=== PATIENT | female | born 1955 | race Caucasian/White ===

== ENCOUNTER → 2019-10-12 10:40 | Outpatient (BNVA) | payer BC, SELFPAY | PROVIDERS: Family Provider Internal Medicine; PCP Internal Medicine; Visit Provider Specialist | DX: G43.711 Chronic migraine without aura, intractable, with status migrainosus (principal) | CPT/HCPCS: 64615; J0585 ==

== ENCOUNTER 2019-10-19 14:36 | Outpatient (CLI) | payer BC, SELFPAY ==
--- NOTE | 2019-10-19 | XRR_ITS ---
PROCEDURE INFORMATION: Exam: XR Right Knee Exam date and time: 10/19/2019 3:04 PM Age: 64 years old Clinical indication: Pain; Knee; Right; Additional info: Pain in right knee, chronic getting worse last 3 months TECHNIQUE: Imaging protocol: XR Right knee. Views: 3 views. COMPARISON: No relevant prior studies available. FINDINGS: Bones/joints: There is joint space narrowing and osteophyte formation at the patellofemoral joint. There is osteophyte formation in the medial and lateral compartments. No acute fracture. Soft tissues: Normal. XR/XR knee RT 3V* [id number] IMPRESSION: There is right knee osteoarthritis.If there is desire for further evaluation, a MRI could be performed.
== END 2019-10-19 14:37 | disposition home or self-care (01) ==
LOC: RAD 14:40
PROVIDERS: PCP Internal Medicine; Visit Provider Internal Medicine
DX: M17.11 Unilateral primary osteoarthritis, right knee (principal)
CPT/HCPCS: 73562

== ENCOUNTER → 2019-11-20 10:58 | Outpatient (BNVA) | payer BC, SELFPAY | PROVIDERS: PCP Internal Medicine; Referring Provider Internal Medicine; Visit Provider Specialist | DX: M25.561 Pain in right knee (principal); M16.11 Unilateral primary osteoarthritis, right hip; M17.11 Unilateral primary osteoarthritis, right knee | CPT/HCPCS: 73560; 73565; 80053; 81000; 87081 ==

== ENCOUNTER 2019-11-28 11:26 | Observation (INO) | payer BC, SELFPAY ==
[2019-11-23 11:13] VITALS: BMI 32.0
--- NOTE | 2019-11-23 11:43 | ANES.PREANE2 ---
Pre-Anesthetic Assessment Pre-Anesthetic Assessment: Height/Weight: Height 1.78 m Weight 101.151 kg Preop Diagnosis: Severe DJD right knee Proposed Procedure: Operation Date: 11/28/19 07:00 Proposed Procedures p Total Knee Arthroplasty 74121 M17.11(Right) - Albertina Mcclure MD Social: Social History: No alcohol and No tobacco Exam: Pre-Anes Outpt Exam: alert, oriented x 3, clear to auscultation bilaterally and regular rate & rhythm Airway: Submandibular: WNL Cervical ROM: WNL MP: 3 Dentition: Other (teeth ok) History/ROS: No significant history except as noted Pulmonary: Pulmonary: Sleep apnea CV/HEM: CV/HEM: DVT and None reported Comments: Factor V liden def : : None reported Hepatic: Hepatic: None reported GI: GI: GERD (controlled) Metabolic: Metabolic: DM (diet) and Hyperlipidemia Musc/skel: Musc/skel: Lower Back Pain and OA/DJD Neuropsych: Neuropsych: Anxiety and Depression Anesthetic Plan: ASA status: 3 Anesthesia: Anesthesia Evaluation, Eval. for regional block, General and Regional (specify below) (right AC) Risk of > 500 ml blood loss (7ml/kg in children): No PFSH Anesthesia PFSH: Medical History Ch mgr wo neeraj w ntr w st Diabetes GERD (gastroesophageal reflux disease) History of high cholesterol Hx of deep venous thrombosis Sleep apnea Surgical History H/O eye surgery History of intraocular lens implant Hx of arthroscopic knee surgery Hx of section Hx of removal of cyst Hx of shoulder surgery Family History Other Diabetes Social History Smoking and tobacco status: never smoked Female Reproductive History: Date of last menstrual period: 11/12/09 Data Anesthesia CBC & Chem 7: 11/23/19 11:30 Cardiac Studies: No Data to Display
[2019-11-23 11:44] LABS: Basophils # 0.1 10^3/uL (0.0-0.1); Basophils % 0.9 %; Eosinophils # 0.1 10^3/uL (0.0-0.8); Eosinophils % 1.7 %; Hematocrit 43.3 % (37.0-47.0); Lymphocytes # 1.9 10^3/uL (0.8-4.8); Lymphocytes % 32.6 %; Mean Corpuscular HGB Conc 32.3 g/dL (30.0-36.0); Mean Corpuscular Hemoglobin 29.6 pg (28.0-34.0); Mean Corpuscular Volume 91.5 fL (81-99); Monocytes # 0.4 10^3/uL (0.2-0.9); Monocytes % 6.7 %; Neutrophils # 3.4 10^3/uL (1.8-7.7); Neutrophils % 57.9 %; Nucleated Red Blood Cells % 0 %; Platelet Count 219 10^3/cmm (130-400); Red Blood Count 4.73 10^6/uL (4.1-5.3); Red Cell Distribution Width 12.7 % (12.1-15.1); White Blood Count 5.8 10^3/uL (4.0-10.0)
[2019-11-23 11:59] LABS: Alanine Aminotransferase 20 U/L (0-33); Albumin Level 4.5 g/dL (3.5-5.2); Alkaline Phosphatase 76 IU/L (35-105); Anion Gap 18.2 (5-19); Aspartate Amino Transferase 24 U/L (0-32); Blood Urea Nitrogen 11 mg/dL (8-23); Calcium 9.4 mg/dL (8.5-10.5); Carbon Dioxide 25 mmol/L (22-29); Chloride 100 mmol/L (98-107); Globulin 3.1 g/dL (1.3-4.6); Glomerular Filtration Rate 84.8 mL/min (90-130); Glucose 154 mg/dL (65-115); Osmolality Calculated 287 mOsm/kg (285-295); Potassium 4.2 mmol/L (3.5-5.1); Sodium 139 mmol/L (136-145); Total Bilirubin 0.5 mg/dL (0.15-1.2); Total Protein 7.6 g/dL (6.6-8.7)
[2019-11-28] VITALS (21 sets, daily range): BP systolic 113–151; BP diastolic 66–89; PULSE 58–94; RESP 16–24; TEMP 35.5–37.3; O2SAT 91–98
--- NOTE | 2019-11-28 06:53 | P.HPUD_ITS ---
Surgery/Procedure H&P Update DATE OF PROCEDURE: November 28, 2019 DATE H&P PERFORMED: 11/20/19 H&P UPDATE INFORMATION: I have reviewed H&P completed within last 30 days, I have examined patient prior to procedure, No changes to prior documentation and H&[place] is [place] [facility] date indicated PREOP DIAGNOSIS: Severe DJD right knee PLANNED PROCEDURE: Operation Date: 11/28/19 08:05 Proposed Procedures p Total Knee Arthroplasty 61464 M17.11(Right) - Albertina Mcclure MD
[2019-11-28 06:59] LABS: Glucose Point of Care 132 mg/dL (70-110)
[2019-11-28] MEDS: midazolam 1 mg/mL INJ 2 mL 2 MG IVP (07:10)
[2019-11-28] MEDS: CELEcoxib 200 mg Capsule 400 MG PO (07:10)
--- NOTE | 2019-11-28 07:10 | P.ANESUD_ITS ---
Pre-Anesthetic Update Pre-Anesthetic Assessment: Date of Surgery/Procedure: 11/28/19 Preop Kelsea gnosis: Severe DJD right knee Proposed Procedure: Operation Date: 11/28/19 08:05 Proposed Procedures p Total Knee Arthroplasty 42588 M17.11(Right) - Albertina Mcclure MD Any changes to Pre-Anesthetic Assessment?: No Last Intake: Intake NPO > 8 hrs Last Liquid Date 11/27/19 Last Solid Date 11/27/19 Labs Last 48hrs: Laboratory Results - last 48 hr 11/28/19 06:55 POC Glucose 132 Vitals: Temperature 97.3 F L 11/28/19 06:40 Temperature Source Temporal Artery S can 11/28/19 06:40 Pulse Rate 60 11/28/19 06:40 Pulse Rhythm 11/28/19 06:40 Pulse Strength 3+ Normal 11/28/19 06:40 Respiratory Rate 18 11/28/19 06:40 Blood Pressure 135/76 11/28/19 06:40 Blood Pressure Dipika n 95 11/28/19 06:40 Pulse Oximetry 97 11/28/19 06:40 Oxygen Delivery Me thod 11/28/19 06:40 Exam: Pre-Anes Outpt Exam: alert, oriented x 3, clear to auscultation bilaterally and regular rate & rhythm Cardiac Studies: No Data to Display
--- NOTE | 2019-11-28 07:10 | ANES.PROC ---
Anesthesia Procedures Procedure/Date: 11/28/19 Nerve Block ^: Nerve Block 1: Main Anesthesia: general anesthesia Time Out Performed: Yes Consent: requested by attending/covering physician, from patient, risks and benefits reviewed and patient agrees to proceed Nerve block location: adductor canal (R) Anesthesia monitors applied: pulse oximetry, BP cuff and oxygen Anesthetic Used: ropivicaine 0.5% and with decadron (4 mg) Amount of anesthesia used (mL): 30 Ultrasound used to: recognize landmarks Nerve Stimulator Used?: No Interscalene/Femoral BLK: 4 stimuplex 21 g needle used for position and inplane approach, visualize local anesthetic spread and no vascular puncture identified Injection: neg aspiration of heme and paresthesia +/- Patient Tolerated Procedure: well and no complications Complications: none
[2019-11-28] MEDS: sodium chloride 0.9% 1,000 ML 30 ML IV (07:11)
[2019-11-28] MEDS: ceFAZolin 1,000 mg SDV 1000 MG IRRIGATION ×2 (08:55)
[2019-11-28] MEDS: tranexamic acid 1,000 mg/10mL SDV 1000 MG IRRIGATION (10:14)
[2019-11-28] MEDS: vancomycin 1,000 MG SDV 1000 MG XX (10:15)
[2019-11-28] MEDS: fentaNYL 50 mcg/mL INJ 2mL IVP ×2 (11:06→11:13)
--- NOTE | 2019-11-28 11:08 | XRR_ITS ---
PROCEDURE INFORMATION: Exam: XR Right Knee Exam date and time: 11/28/2019 11:23 AM Age: 64 years old Clinical indication: Condition or disease; Joint replacement status; Knee; Right; Prior surgery; Additional info: S/P right tka TECHNIQUE: Imaging protocol: XR Right knee. Views: Frontal and cross table lateral views of the right knee. COMPARISON: CR (LOW EXM, ) 11/20/2019 11:03 AM FINDINGS: Bones/joints: The patient is status post total knee replacement. The patella and patellar component are obliquely imaged on the lateral projection, but appear normally position in the frontal projection. There is a 3.2 mm lucency above the femoral component on the lateral image only, etiology indeterminate. The tibial prosthetic joint component appears to be in good position and alignment. There is no fracture identified. Interval screw tracts in the proximal tibia noted on the frontal image. There is no joint effusion identified. Soft tissues: Operative site emphysema is present. Anterior surgical cutaneous clips. XR/XR knee RT 1-2V [id number] IMPRESSION: Status post total knee replacement. Please see above comments.
--- NOTE | 2019-11-28 11:14 | PM.OP ---
Operative Report Date of procedure: November 28, 2019 Pre-op Diagnosis: Severe DJD right knee Post-op diagnosis: same Associated Problem List Diagnoses (1) Primary osteoarthritis of right knee:
--- NOTE | 2019-11-28 11:25 | PM.OP ---
Operative Report Date of procedure: November 28, 2019 Pre-op Diagnosis: Severe DJD right knee with Flexion contracture Post-op diagnosis: same Post-op Findings: Flexion contracture Procedure Done: Right total knee arthroplasty utilizing the following components: The [employer] triathlon total knee system with a size 3 right posterior stabilized press-fit femoral component, a size 3 press-fit tibial component and a size 3 x 13 posterior stabilized tibial insert with an asymmetric 29 x 9 mm patella Specimens removed/disposition: Bone, disposed of Pathology: none sent Surgeon: Albertina Mcclure Button Clamper: [facility] OR technicians Anesthesia: General (Intubated ASA 3 with preoperative regional block) Estimated blood loss (mL): 25 Tourniquet time (min): 120 IV fluids (mL): 1,500 Urine output (mL): 200 Complications: None Findings: Flexion contracture with valgus deformity partially corrected Condition: stable Disposition: PACU (Then to floor for postoperative rehabilitation and pain management) Brief History: This 64-year-old woman presented with complaints of severe right knee pain. She is having significant impact in her activities of daily living from her right knee. She wishes to proceed with total knee arthroplasty. Risks and complications are explained to her. Consents are signed. Questions are answered. Procedure: The patient was brought to the operating theater, and after undergoing adequate general intubated anesthesia with supplemental regional block, the right lower extremity was prepped with Dura-Prep and draped in usual fashion following placement of a tourniquet high on the leg. The leg was then draped free. Following prepping and draping, the leg was exsanguinated, and the tourniquet was elevated to 250 mmHg for a total tourniquet time of 120 minutes. Prior to elevation of the tourniquet, but following exposure of the site of surgery, a surgical pause was performed. At the time of the surgical pause, we confirmed the site and side of surgery. Additionally, we confirmed the appropriate and timely administration of preoperative antibiotics, Ancef 2 g and transexemic acid 1 g. The availability of equipment was confirmed, and the patient's identity was verbalized as well. Following the surgical pause, an incision was made centering over the patella continuing proximally and distally as necessary to allow access to the knee joint. Dissection continued through skin and soft tissues using a scalpel. Hemostasis was obtained using electrocautery. The skin incision was followed by a median parapatellar arthrotomy. The leg was extended and the patella was everted. Following this, the leg was returned to flexed position. The distal femur was exposed and a drill hole was made in this for placement of the distal femoral jig. The distal femoral jig was set at 5? of valgus. The distal femoral cutting block was then placed in appropriate position, and an terrell wing was used to confirm an appropriate amount of distal femur would be resected. The distal femoral resection was accomplished with 10 mm of bone being resected distally second to the flexion contracture. After the distal femoral resection had been accomplished, the femur was measured and it measured a size 3. Medial lateral dimension also measured a size 3. A size 3 femoral cutting block was placed in position, and we were then able to accomplish the anterior, posterior and chamfer cuts. This jig was then removed and the notch guide was placed in position. With the notch guide in appropriate position, the notch was excised including resection of the anterior and posterior cruciate ligaments. This notch was to allow for the posterior stabilized femoral component. At this point, the femur was prepared and attention was directed to the proximal tibia. The posterior knee retractor was placed along with medial and lateral retractors. Further resection of the menisci was accomplished as we had better visualization. A complete meniscectomy was performed both medially and laterally with care being taken to protect the popliteus. Retractors were then placed so that the proximal tibia was well visualized. A drill hole was then made in the tibia for placement of the intramedullary guide. This guide was placed so that approximately 2 mm of bone would be resected from the deficient medial tibial plateau. The intramedullary guide was utilized supplemented with an extramedullary guide to assure appropriate alignment for the proximal tibial resection. The proximal tibial jig was then evaluated, pinned in position, and the proximal tibial resection was accomplished without difficulty. The jig was removed and the proximal tibia was measured. It measured a size 3. A trial reduction was accomplished with a 9 mm insert. Posterior release was required both before and after trial reduction. Large osteophytes were also removed from posterior femur. A medial release was required as well. We increased through a size 11 mm insert to a final size 13 mm insert. We then had good balance to the knee with full extension and excellent varus valgus stability. The femoral component was placed in position for the trial reduction, and the knee was placed through range of motion. There was excellent stability with excellent varus-valgus alignment with appropriate patellar tracking. This was felt to be the appropriate size insert. There was full extension and flexion without lift off and the rotation of the tibia was marked. Alignment was checked from the hip to the ankle, and this was noted to be appropriate as well. Attention was then directed to the patella. The patella was measured with a caliper. We resected sufficient patella to leave approximately 14 mm of patella remaining. Measurements of the patella then indicated that a size asymmetric 29 mm x 9 mm was the appropriate patellar size. We then placed the jig to drill for the 3 pegs of the press-fit patella, and these drill holes were made without incident. A trial patella was then placed and the knee was placed through range of motion. The patella was noted to track nicely without evidence of subluxation. The femur was prepared for a press-fit femur by drilling 2 holes for the femoral pegs. All trial components were subsequently removed. The tibial tray was then pinned into position, and we broached the tibia for the stem of the tibial component. Subsequently, 4 drill holes were made for placement of the press-fit tibia. This was accomplished without difficulty. Care was taken to assure appropriate rotation of the tibia as well as appropriate position on the proximal tibia. The tibial tray was completely seated on the proximal tibia. Following broaching, the tibial guide was removed, and all surfaces were copiously irrigated. The surfaces were then dried and a bone plug was placed into the distal femur. Exparel was also injected at this point. The Tritanium tibia was impacted into position. The beaded femur was then impacted into position in a cementless fashion. The tibial insert was placed. The patella was pressed into position with a patellar clamp. The knee was irrigated with 20 mL of Betadine and 500 mL of normal saline, and this was allowed to remain in the knee for 3-4 minutes. Additionally, the knee was irrigated with transexemic acid and 100 mL of fluid. This was allowed to remain in the knee for 3 full minutes. The knee was then copiously irrigated and suctioned dry. Attention was then directed to closure. Closure was accomplished with 0 Vicryl in the fascial tissues, 2-0 Monocryl was used in the subcutaneous tissues, and the skin was closed with skin jerrod followed by Exofin. A sterile dressing was then placed consisting of Telfa, 4 x 4's, ABDs, sterile soft roll, and an Mark wrap. The patient was returned the Recovery Room in a satisfactory condition. X-rays were obtained there. The patient will be discharged to the floor for postoperative rehabilitation and pain management. She'll be under observation status with plans to discharge home with home health.
--- NOTE | 2019-11-28 11:27 | SUR.PHASEI ---
pt awake alert oriented x 3 pt c/o of pain to rt knee cap area, pt had a block prior to surgery
[2019-11-28 11:50] LABS: Glucose Point of Care 165 mg/dL (70-110)
--- NOTE | 2019-11-28 11:53 | SUR.PHASEI ---
1145 PT TO FLOOR PT ALERT HANDOFF AT BEDSIDE TO EDSON BARRAGAN., DRESSING D/.I [place] PATENT OF LT YELLOW URINE IN BAG AND TUBING, APPROX 150ML NOT EMPTIEDS. BP 143/81, HR 59, RESP 18, SATS ON RA 94%
[2019-11-28] MEDS: oxyCODONE 5 mg IR Tab/Cap PO ×3 (12:52→20:39)
[2019-11-28] MEDS: lactated ringers 1,000 ML 100 ML IV (12:57)
[2019-11-28] MEDS: chlorhexidine gluconate 0.12% Btl 473 mL 30 ML MUCOUS MEM ×3 (13:05→20:42)
[2019-11-28] MEDS: iron polysaccharide complex 150 mg Capsule PO (17:14)
[2019-11-28] MEDS: sennosides-docusate Tablet 2 TAB PO (17:15)
[2019-11-28] MEDS: calcium carbonate 500 mg Chew Tablet 1000 MG PO (17:15)
[2019-11-28] MEDS: atorvastatin 40 mg Tablet 20 MG PO (20:40)
[2019-11-28] MEDS: CELEcoxib 200 mg Capsule PO (20:40)
[2019-11-28] MEDS: baclofen 10 mg Tablet PO (20:40)
[2019-11-29] VITALS (7 sets, daily range): BP systolic 113–123; BP diastolic 59–75; PULSE 50–57; RESP 12–20; TEMP 36.6–37; O2SAT 95–99
[2019-11-29] MEDS: oxyCODONE 5 mg IR Tab/Cap PO ×2 (03:45→08:42)
[2019-11-29] MEDS: FUROsemide 20 mg Tablet PO (05:12)
[2019-11-29] MEDS: lactated ringers 1,000 ML 100 ML IV (05:15)
[2019-11-29 05:52] LABS: Basophils % 0.2 %; Eosinophils % 0.1 %; Hematocrit 35.7 % (37.0-47.0); Hemoglobin 11.5 g/dL (11.5-15.3); Lymphocytes % 23.6 %; Mean Corpuscular HGB Conc 32.2 g/dL (30.0-36.0); Mean Corpuscular Hemoglobin 30.2 pg (28.0-34.0); Mean Corpuscular Volume 93.7 fL (81-99); Mean Platelet Volume 11.2 fL (7.4-10.4); Monocytes # 0.7 10^3/uL (0.2-0.9); Monocytes % 8.5 %; Neutrophils # 5.6 10^3/uL (1.8-7.7); Neutrophils % 67.1 %; Nucleated Red Blood Cells % 0 %; Platelet Count 172 10^3/cmm (130-400); Red Blood Count 3.81 10^6/uL (4.1-5.3); Red Cell Distribution Width 13.1 % (12.1-15.1); White Blood Count 8.3 10^3/uL (4.0-10.0)
[2019-11-29 06:07] LABS: Anion Gap 15.7 (5-19); Blood Urea Nitrogen 9 mg/dL (8-23); Carbon Dioxide 23 mmol/L (22-29); Chloride 106 mmol/L (98-107); Glomerular Filtration Rate 84.8 mL/min (90-130); Glucose 171 mg/dL (65-115); Osmolality Calculated 292 mOsm/kg (285-295); Potassium 3.7 mmol/L (3.5-5.1); Sodium 141 mmol/L (136-145)
--- NOTE | 2019-11-29 07:07 | PC.NURSE ---
Shift Summary Patient rested well throughout the night with requesting pain medication twice. Mtz was removed at 0600 with 1000 output. Patient is up to chair for breakfast.
[2019-11-29] MEDS: calcium carbonate 500 mg Chew Tablet 1000 MG PO (08:36)
[2019-11-29] MEDS: prednisoLONE 1% Op Susp 5 mL Btl 1 DROP EYE-LEFT (08:36)
[2019-11-29] MEDS: multivitamin therapeutic Tablet 1 TAB PO (08:37)
[2019-11-29] MEDS: rivaroxaban 10 mg Tablet 20 MG PO (08:37)
[2019-11-29] MEDS: sennosides-docusate Tablet 2 TAB PO (08:37)
[2019-11-29] MEDS: cetirizine 10 mg Tablet PO (08:37)
[2019-11-29] MEDS: pantoprazole DR 40 mg Tablet PO (08:37)
[2019-11-29] MEDS: aspirin 325 mg EC Tablet PO (08:37)
[2019-11-29] MEDS: escitalopram 10 mg Tablet 20 MG PO (08:37)
[2019-11-29] MEDS: iron polysaccharide complex 150 mg Capsule PO (08:37)
[2019-11-29] MEDS: gabapentin 300 mg Capsule PO (08:37)
[2019-11-29] MEDS: CELEcoxib 200 mg Capsule PO (08:37)
[2019-11-29] MEDS: chlorhexidine gluconate 0.12% Btl 473 mL 30 ML MUCOUS MEM (08:38)
[2019-11-29] MEDS: cholecalciferol (vitamin D3) 1,000 unit Tablet 1000 UNIT PO (08:38)
--- NOTE | 2019-11-29 10:34 | P.DS_ITS ---
Discharge Providers Date of Admission: 11/28/19 11:26 Date of Discharge: November 29, 2019 Attending Provider at Admission: Albertina Mcclure MD Attending Provider at Discharge: Albertina Mcclure MD Primary Care Provider: Marlen Judd MD Diagnoses at Discharge Discharge Diagnosis (1) History of total right knee replacement: Status: Acute (2) Primary osteoarthritis of right knee: Status: Resolved Reason for Visit Reason for Visit: Primary osteoarthritis right knee Hospital Course Hospital Course: Patient was admitted on November 28, 2019 for same-day surgery for a right total knee arthroplasty. The procedure performed is as follows: Right total knee arthroplasty utilizing the following components: The [employer] triathlon total knee system with a size 3 right posterior stabilized press-fit femoral component, a size 3 press-fit tibial component and a size 3 x 13 posterior stabilized tibial insert with an asymmetric 29 x 9 mm patella. Postoperatively, the patient was admitted to the floor for pain management, medical supervision, and to begin physical therapy process. Patient was seen on the first postoperative day. She was doing well working with physical therapy. She felt independent. Dressings were removed. There were no complications. Discharge Summary: Patient will be discharged home with home health. Physical Exam Const: COMMON NORMALS: no acute distress, average body habitus, patient oriented x3 and alert GENERAL APPEARANCE: cooperative and comfortable ORIENTATION/CONSCIOUSNESS: Yes awake HENMT: COMMON NORMALS: normocephalic and atraumatic HEAD & SCALP: normocephalic and atraumatic Eye: GENERAL EYE: appearance normal, both eyes and all related structures Chest: COMMONS NORMALS: normal inspection of the chest Resp: COMMON NORMALS: normal respiratory effort EFFORT & INSPECTION: Yes able to speak in complete sentences and Yes symmetric chest movement Extremity: GENERAL: Yes normal exam except as noted RIGHT LOWER EXTREMITY: Yes knee joint (Status post total knee arthroplasty) Right knee: Yes inspection (Dressing is removed. Palma are intact. The wound is benign. There is minimal to no swelling.), Yes palpation (Patient does describe some numbness to palpation about the incision area. Minimal tenderness to palpation.), Yes ROM (Near full extension. Flexion not evaluated, but she will work on this with physical therapy.), Yes neurovascular exam (Intact with no evidence of DVT) and Yes other (There is minimal to no swelling distally in the leg) Neuro: COMMON NORMALS: patient oriented x3 SENSORIUM/ORIENTATION: Yes alert Psych: COMMON NORMALS: mental status grossly normal APPEARANCE: Yes grossly normal ATTITUDE: Yes calm and Yes engaged ATTENTION/CONCENTRATION: Yes attention grossly intact Skin: COMMON NORMALS: no rashes or lesions noted GENERAL SKIN EXAM: no rashes or lesions noted Urinary Catheter Management^: Mtz: Cath Placed During This Visit: yes, but has since been removed by the nurse Reason for Continuing Indwelling Catheter: Decision to DC Catheter Urinary Catheter Date of Insertion: 11/28/19 Urinary Catheter Time of Insertion: 08:10 Date Urinary Catheter Removed: 11/29/19 Time Urinary Catheter Discontinued: 06:00 Discharge Data Data Completed and Pending: Completed Studies During Hospitalization Category Date Time Status XR knee RT 1-2V 7 3560 Urgent Exams 11/28/19 11:08 Completed Pending at discharge Category Date Time Status Complete Blood Co unt w/Auto Lab 11/30/19 04:00 Uncollected Complete Blood Co unt w/Auto Lab 12/01/19 04:00 Uncollected Complete Blood Co unt w/Auto Routine Lab 11/23/19 10:58 Uncollected Labs from last 24 hours 11/29/19 11/29/19 11/28/19 05:29 05:29 11:45 WBC 8.3 RBC 3.81 L Hgb 11.5 Hct 35.7 L MCV 93.7 MCH 30.2 MCHC 32.2 RDW 13.1 Plt Count 172 MPV 11.2 H Neut % (Auto) 67.1 Lymph % (Auto) 23.6 [place] % (Auto) 8.5 Eos % (Auto) 0.1 Baso % (Auto) 0.2 Neut # (Auto) 5.6 Lymph # (Auto) 2.0 [place] # (Auto) 0.7 Eos # (Auto) 0.0 Baso # (Auto) 0.0 Nucleated RBC % (a uto) 0 Nucleated RBCs # 0.0 Sodium 141 Potassium 3.7 Chloride 106 Carbon Dioxide 23 Anion Gap 15.7 BUN 9 Creatinine 0.7 GFR Calculation 84.8 L Glucose 171 H POC Glucose 165 Calculated Osmolal ity 292 Calcium 9.0 Procedures Performed: Right total knee arthroplasty utilizing the following components: The [employer] tri[employer]al[employer] total knee system with a size 3 right posterior stabilized press-fit femoral component, a size 3 press-fit tibial component and a size 3 x 13 posterior stabilized tibial insert with an asymmetric 29 x 9 mm patella Vitals: Last Vital Signs Temp 97.8 F 11/29/19 08:00 Pulse 50 L 11/29/19 08:00 Resp 18 11/29/19 08:42 BP 120/75 11/29/19 08:00 Pulse Ox 99 11/29/19 08:00 Discharge Plan Discharge Patient Disposition: Home Health Service Condition: Stable Prescriptions: New celecoxib [Celebrex] 200 mg capsule 200 mg PO DAILY Qty: 30 RF: 0 oxycodone 5 mg tablet 5 mg PO Q4H PRN (Reason: pain) Qty: 30 RF: 0 Continued prednisolone acetate 1 % drops,suspension 1 drop ophthalmic (eye) DAILY RF: 0 gabapentin 300 mg capsule 300 mg PO DAILY RF: 0 cetirizine 10 mg tablet 10 mg PO DAILY RF: 0 furosemide 20 mg tablet 20 mg PO QAM RF: 0 escitalopram oxalate 20 mg tablet 20 mg PO DAILY RF: 0 pantoprazole 40 mg tablet,delayed release (DR/EC) 40 mg PO DAILY RF: 0 baclofen 10 mg tablet 10 mg PO BEDTIME RF: 0 lovastatin 20 mg tablet 20 mg PO BEDTIME RF: 0 rizatriptan 5 mg Tablet,Disintegrating 5 mg PO Q2H PRN (Reason: Headache) RF: 0 Xarelto 20 mg tablet 20 mg PO DAILY RF: 0 multivitamin with iron Tablet 1 tab PO DAILY RF: 0 Discharge Orders: Discharge Order (Routine); Ordered 11/28/19 Ordered By: Albertina Mcclure Other Ambulatory Orders: DME: Walker (Order) Location: None Selected Ordered By: Albertina Mcclure Referrals: [facility] [place] [facility] [place] [facility] [place]) [Outside] Marlen Judd MD [Primary Care Provider] - 12/27/19 12:45 pm Albertina Mcclure MD [Physician] - 12/13/19 11:45 am Discharge Diet: Advance as tolerated and Usual diet Discharge Activity: Increase activity as tolerated, Use walker/crutches as instructed and As per PT/OT instructions Activity Restrictions/Additional Instructions: Weightbearing as tolerated with home health and home physical therapy. Discharge Attestations Time Spent in Discharge Care*: greater than 30 min Specific Discharge Activities: Specific discharge activities: educating patient and documenting/other paperwork Status at Discharge: Cognitive status at discharge: cognitively intact , Behavioral status at discharge: cooperative , Overall status at discharge: patient has a new baseline Quality Metrics Clinical Quality Measures During this hospital stay, did patient experience: None Coding Level of Care Code [facility] Director for [facility] Exam Comprehensive Diagnoses History of total right knee replacement Z96.651 Primary osteoarthritis of right knee M17.11
[2019-11-29 10:59] LABS: Glucose Point of Care 156 mg/dL (70-110)
== END 2019-11-29 14:21 | disposition home health service (06) ==
LOC: MEDSURG 11:26
PROVIDERS: Admitting Provider Specialist; PCP Internal Medicine; Visit Provider Specialist
PROC: (CPT 27447; principal; 2019-11-28 08:05)
DX: M17.11 Unilateral primary osteoarthritis, right knee (principal); G47.30 Sleep apnea, unspecified; Z86.718 Personal history of other venous thrombosis and embolism; K21.9 Gastro-esophageal reflux disease without esophagitis; E11.9 Type 2 diabetes mellitus without complications; E78.5 Hyperlipidemia, unspecified; F41.9 Anxiety disorder, unspecified; F32.9 Major depressive disorder, single episode, unspecified
CPT/HCPCS: 27447; 12345; 36415; 36416; 51702; 73560; 80048; 80053; 82962; 85025; 96361; 96365; 96366; 96374; 97110; 97116; 97161; 97166; 97530; C1776; C9290; G0378; J0131; J0690; J1100; J2001; J2250; J2704; J2795; J3010; J3370; J3490; J7030

== ENCOUNTER 2019-12-13 11:09 | Outpatient (CLI) | payer BC, SELFPAY ==
--- NOTE | 2019-12-13 11:31 | XRR_ITS ---
PROCEDURE INFORMATION: Exam: XR Right Knee Exam date and time: 12/13/2019 11:50 AM Age: 64 years old Clinical indication: Condition or disease; Other: Post op fwup RT tka; Prior surgery; Surgery date: <1 month; Patient HX: Post op follow up right tka. Previous XR 11/28/19, 11/20/19,10/19/19; Additional info: Ptop fwup from RT tka TECHNIQUE: Imaging protocol: XR Right knee. Views: 3 views. COMPARISON: CR XR knee RT 1-2V 44096 11/28/2019 11:05 AM FINDINGS: Bones/joints: Patient is status post knee arthroplasty with near anatomical alignment of the prosthesis. No paralleling lucencies about the femoral or tibial component to suggest loosening. No acute fracture or dislocation Soft tissues: Surgical clips in the soft tissues. Other findings: Spacer. XR/XR knee RT 3V* [id number] IMPRESSION: 1. Status post total knee arthroplasty. 2 No acute fracture or dislocation status post knee arthroplasty.
== END 2019-12-13 11:10 | disposition home or self-care (01) ==
LOC: RAD 11:12
PROVIDERS: PCP Internal Medicine; Visit Provider Specialist
DX: Z96.651 Presence of right artificial knee joint (principal)
CPT/HCPCS: 73562

== ENCOUNTER 2019-12-18 12:54 | Outpatient (CLI) | payer BC, SELFPAY ==
--- NOTE | 2019-12-18 13:01 | MM_ITS ---
WS: [id number] BILATERAL SCREENING DIGITAL MAMMOGRAM WITH CAD HISTORY: SCREENING COMPARISON: 08/26/2018, 08/09/2017 Bilateral CC and MLO views submitted. Computer aided detection analyzed. Breast composition: There are scattered areas of fibroglandular density. No suspicious masses, microc alcifications or architectural distortion. Benign calcifications in each breast. MM/[id number] IMPRESSION: BI-RADS: 2-Benign FOLLOW UP: 1 Year Follow-up
== END 2019-12-18 12:55 | disposition home or self-care (01) ==
LOC: RADSHAW 12:59
PROVIDERS: PCP Internal Medicine; Visit Provider Internal Medicine
DX: Z12.31 Encounter for screening mammogram for malignant neoplasm of breast (principal)
CPT/HCPCS: 77067

== ENCOUNTER 2020-01-11 07:30 | Outpatient (RCR) | payer BC, SELFPAY | END 2020-01-29 23:59 | disposition home or self-care (01) | LOC: SPT 07:30 | PROVIDERS: PCP Internal Medicine; Visit Provider Specialist | DX: Z47.1 Aftercare following joint replacement surgery (principal); Z96.651 Presence of right artificial knee joint | CPT/HCPCS: 64615; 97110; 97161; J0585 ==

== ENCOUNTER 2020-01-30 06:00 | Outpatient (RCR) | payer BC, SELFPAY | END 2020-02-28 23:59 | disposition home or self-care (01) | LOC: SPT 06:00 | PROVIDERS: PCP Internal Medicine; Visit Provider Specialist | DX: Z47.1 Aftercare following joint replacement surgery (principal); Z96.651 Presence of right artificial knee joint | CPT/HCPCS: 97110 ==

== ENCOUNTER 2020-02-22 15:13 | Emergency (ER) | payer BC, SELFPAY ==
[2020-02-22 15:14] VITALS: BP 98/64; PULSE 52; RESP 18; TEMP 37.1; O2SAT 99; BMI 31.5
--- NOTE | 2020-02-22 15:21 | W.ED.UPPEXIN ---
HPI - Extremity Injury (Upper) General: Chief Complaint: Extremity Injury, Upper Stated Complaint: LEFT PINKY PAIN Time Seen by Provider: 02/22/20 15:17 Source: patient Mode of arrival: ambulatory Limitations: no limitations History of Present Illness: HPI narrative: Patient is a 64-year-old female who presents to ED today for evaluation of a crush injury to her left fifth digit that she sustained after she accidentally slammed in a car door. complaint: injury to: left and finger Onset (ago): minute(s) Other Extremity Injury: Left: fingers Other injuries: none Place: other (cardoor) Severity: moderate Relieving factors: none Exacerbating factors: other (palpation) Context: crush Associated symptoms: Reports no associated symptoms Review of Systems Musc: Reports: extremity pain (L 5th finger) [facility] ED PFSH: Medical History (Updated 02/22/20 @ 16:08 by STU Ernandez) Ch mgr wo neeraj w ntr w st Diabetes GERD (gastroesophageal reflux disease) History of high cholesterol Hx of deep venous thrombosis Sleep apnea Surgical History H/O eye surgery History of intraocular lens implant Hx of arthroscopic knee surgery Hx of section Hx of removal of cyst Hx of shoulder surgery Family History Other Diabetes Social History Smoking and tobacco status: never smoked Female Reproductive History: Date of last menstrual period: 11/12/09 Physical Exam Extremity: GENERAL: Yes normal exam except as noted OTHER: TTP, swelling and ecchymosis to palmar pad of L 5th digit; no nail damage noted Neuro: COMMON NORMALS: moves all extremities, no focal motor deficits and no sensory deficits noted Skin: OTHER: see extremity assessment Course Vital Signs: Vital signs: Vital Signs Temperature 98.7 F 02/22/20 15:14 Pulse Rate 52 L 02/22/20 15:14 Respiratory Rate 18 02/22/20 15:14 Blood Pressure 98/64 02/22/20 15:14 Pulse Oximetry 99 02/22/20 15:14 MDM - Extremity Injury (Upper) Imaging Data^: XR L finger: Radiologist's impression: [place] [address] [address] XRay Report Signed with Jossie Patient: Lillie Smith Unit #: [id number] : 1955 Age/Sex: 64 / F ADM Date: 02/22/20 Loc: ER Room/Bed: Attending Dr: Ordering Provider/Ordering MD: Chloe Reid Date of Service: 02/22/20 Procedure(s): XR finger LT min 2V 80930 Accession Number(s): [id number] Report Number: [id number] ADDENDUM WS: [id number] An additional oblique view has been submitted. No fractures or dislocations are seen. Addendum Dictated By: Gerri Rios MD Addendum Signed By: Gerri Rios MD Signed Date/Time: 02/22/20 1601 Addendum Cosigned By: WS: [id number] 2 views of the left fifth finger, 02/22/2020 Clinical Data: trauma; 5th Comparison: None. Findings: No fractures or dislocations are seen. The soft tissues are normal. The epiphyses and joint spaces are not remarkable. There is a calcification adjacent to the distal radial side of the fifth distal phalanx. This may be from an old injury. XR/XR finger LT min 2V 23963 Impression: Negative for new fracture of the left fifth finger. Dictated By: Gerri Rios MD Signed By: Gerri Rios MD Signed Date/Time: 02/22/20 1545 DD/ 1544 Discharge Plan Discharge Patient Disposition: Home Clinical Impression: Contusion of left little finger Qualifiers: Encounter type: initial encounter Damage to nail status: without damage Qualified Code(s): S60.052A - Contusion of left little finger without damage to nail, initial encounter Condition: Stable Prescriptions: No Action prednisolone acetate 1 % drops,suspension 1 drop ophthalmic (eye) DAILY RF: 0 gabapentin 300 mg capsule 300 mg PO DAILY RF: 0 cetirizine 10 mg tablet 10 mg PO DAILY RF: 0 furosemide 20 mg tablet 20 mg PO QAM RF: 0 escitalopram oxalate 20 mg tablet 20 mg PO DAILY RF: 0 pantoprazole 40 mg tablet,delayed release (DR/EC) 40 mg PO DAILY RF: 0 lovastatin 20 mg tablet 20 mg PO BEDTIME RF: 0 Celebrex 200 mg capsule 200 mg PO DAILY Qty: 30 RF: 0 rizatriptan 5 mg Tablet,Disintegrating 5 mg PO Q2H PRN (Reason: Headache) RF: 0 Xarelto 20 mg tablet 20 mg PO DAILY RF: 0 multivitamin with iron Tablet 1 tab PO DAILY RF: 0 Tylenol 325 mg Tablet 325 - 650 mg PO QID PRN (Reason: Pain) RF: 0 Discharge Orders: Discharge Order (Routine); Ordered 02/22/20 Ordered By: Chloe Reid Referrals: Marlen Judd MD [Primary Care Provider] - Patient Instructions: Crush Injury, Contusion in Adults (ED) Coding Level of Care Code ED Elevator Operator for Chg Fwd Exam Expanded Problem Focused
--- NOTE | 2020-02-22 15:23 | XR_ITS ---
WS: [id number] 2 views of the left fifth finger, 02/22/2020 Clinical Data: trauma; 5th Comparison: None. Findings: No fractures or dislocations are seen. The soft tissues are normal. The epiphyses and joint spaces ar e not remarkable. There is a calcification adjacent to the distal radial side of the fifth distal phalanx. This may be from an old injury. XR/XR finger LT min 2V 11098 Impression: Negative for new fracture of the left fifth finger.
[2020-02-22 16:20] VITALS: BP 133/82; PULSE 57; RESP 16; O2SAT 97
== END 2020-02-22 16:20 | disposition home or self-care (01) ==
PROVIDERS: Emergency Provider Physician Assistant; PCP Internal Medicine
DX: S60.052A Contusion of left little finger without damage to nail, initial encounter (principal); E11.9 Type 2 diabetes mellitus without complications; W23.0XXA Caught, crushed, jammed, or pinched between moving objects, initial encounter
CPT/HCPCS: 12345; 73140; 99281; 99282

== ENCOUNTER 2020-02-29 06:00 | Outpatient (RCR) | payer BC, SELFPAY | END 2020-03-08 23:00 | disposition home or self-care (01) | LOC: SPT 06:00 | PROVIDERS: PCP Internal Medicine; Visit Provider Specialist | DX: Z47.1 Aftercare following joint replacement surgery (principal); Z96.651 Presence of right artificial knee joint | CPT/HCPCS: 97110 ==

== ENCOUNTER → 2020-04-08 10:42 | Outpatient (BNVA) | payer BC, SELFPAY | PROVIDERS: PCP Internal Medicine; Visit Provider Specialist | DX: Z96.651 Presence of right artificial knee joint (principal) | CPT/HCPCS: 73560; 73565 ==

== ENCOUNTER → 2020-04-11 14:19 | Outpatient (BNVA) | payer BC, SELFPAY | PROVIDERS: Family Provider Specialist; PCP Internal Medicine; Visit Provider Specialist | DX: G43.711 Chronic migraine without aura, intractable, with status migrainosus (principal) | CPT/HCPCS: 64615; J0585 ==

== ENCOUNTER 2020-04-15 06:00 | Outpatient (RCR) | payer BC, SELFPAY | END 2020-05-16 23:00 | disposition home or self-care (01) | LOC: SPT 06:00 | PROVIDERS: PCP Internal Medicine; Referring Provider Specialist; Visit Provider Specialist | DX: Z47.1 Aftercare following joint replacement surgery (principal); Z96.651 Presence of right artificial knee joint | CPT/HCPCS: 97110; 97161 ==

== ENCOUNTER 2020-04-30 06:00 | Outpatient (RCR) | payer BC, SELFPAY | END 2020-05-30 23:59 | disposition home or self-care (01) | LOC: SPT 06:00 | PROVIDERS: PCP Internal Medicine; Referring Provider Specialist; Visit Provider Specialist | DX: Z47.1 Aftercare following joint replacement surgery (principal); Z96.651 Presence of right artificial knee joint | CPT/HCPCS: 97110 ==

== ENCOUNTER → 2020-05-06 13:34 | Outpatient (BNVA) | payer BC, SELFPAY | PROVIDERS: PCP Internal Medicine; Visit Provider Specialist | DX: G31.84 Mild cognitive impairment of uncertain or unknown etiology (principal) | CPT/HCPCS: 96116; 99214 ==

== ENCOUNTER 2020-05-06 16:18 | Outpatient (CLI) | payer BC, SELFPAY ==
[2020-05-06 17:46] LABS: Thyroid Stimulating Hormone 0.73 uIU/mL (0.27-4.20); Vitamin B12 476 pg/mL (232-1245)
== END 2020-05-06 16:19 | disposition home or self-care (01) ==
PROVIDERS: PCP Internal Medicine; Visit Provider Specialist
DX: R41.3 Other amnesia (principal)
CPT/HCPCS: 36415; 82607; 84443

== ENCOUNTER 2020-05-16 07:19 | Outpatient (CLI) | payer BC, SELFPAY ==
--- NOTE | 2020-05-16 07:15 | MR_ITS ---
WS: [id number] MRI BRAIN WITHOUT CONTRAST HISTORY: R41.3 - Other amnesia COMPARISON: CT head 08/20/2011 TECHNIQUE: Diffusion imaging, multiplanar T1, T2 and FLAIR imaging obtained. Diffusion-weighted images are negative. On the FLAIR sequence there is increased T2 signal and subara chnoid spaces of the RIGHT cerebellum, RIGHT temporal and parietal lobes. No susceptibility abnormali ty. Additional very mild chronic microvascular ischemic changes in the white matter. No midline shift or mass effect. Ventricles and extra-axial spaces are normal. No inferior displacement of cerebellar tonsils. The sella turcica and pituitary gland are unremarkabl e. Posterior fossa is also unremarkable. Dural venous sinuses and [place] demonstrate no abnormality on this unenhanced studies. Paranasal sinuses: Clear. Mastoid air cells: Normal. Calvarium and scalp: No calvarial abnormality. Deformity of the LEFT globe. MR/MR head wo con* [id number] IMPRESSION: 1. No acute infarct or significant volume loss. 2. There is abnormal FLAIR signal in the subarachnoid spaces of the RIGHT cere bellum, RIGHT temporal and parietal lobes. There are no corresponding abnormali ties on the other sequences. There is an artifact noted in the RIGHT neck which may be causing this signal abnormality. Further evaluation is recommended to e xclude pathology. Recommend noncontrast head CT and follow-up MRI brain with co ntrast to exclude enhancement.
== END 2020-05-16 07:20 | disposition home or self-care (01) ==
LOC: RADSHAW 07:21
PROVIDERS: PCP Internal Medicine; Visit Provider Specialist
DX: R41.3 Other amnesia (principal)
CPT/HCPCS: 70551; 73110; 73560; 73565

== ENCOUNTER → 2020-07-03 10:35 | Outpatient (BNVA) | payer OTHER, SELFPAY | PROVIDERS: PCP Internal Medicine; Visit Provider Specialist | DX: M25.561 Pain in right knee; M17.12 Unilateral primary osteoarthritis, left knee; Z96.651 Presence of right artificial knee joint | CPT/HCPCS: 73560; 73565 ==

== ENCOUNTER → 2020-07-04 15:40 | Outpatient (BNVA) | payer OTHER, SELFPAY | PROVIDERS: PCP Internal Medicine; Visit Provider Specialist | DX: G43.711 Chronic migraine without aura, intractable, with status migrainosus (principal); G31.84 Mild cognitive impairment of uncertain or unknown etiology | CPT/HCPCS: 64615; 99213; J0585 ==

== ENCOUNTER 2020-09-05 10:34 | Outpatient (RCR) | payer OTHER, SELFPAY | END 2020-09-19 23:00 | disposition home or self-care (01) | LOC: SPT 10:34 | PROVIDERS: PCP Internal Medicine; Referring Provider Internal Medicine; Visit Provider Internal Medicine | DX: M25.511 Pain in right shoulder (principal) | CPT/HCPCS: 97110; 97161 ==

== ENCOUNTER → 2020-11-07 10:46 | Outpatient (BNVA) | payer OTHER, SELFPAY | PROVIDERS: PCP Internal Medicine; Visit Provider Specialist | DX: G43.711 Chronic migraine without aura, intractable, with status migrainosus (principal); G31.84 Mild cognitive impairment of uncertain or unknown etiology | CPT/HCPCS: 64615; J0585 ==

== ENCOUNTER → 2020-11-13 11:30 | Outpatient (BNVA) | payer OTHER, SELFPAY | PROVIDERS: PCP Internal Medicine; Visit Provider Specialist | DX: M79.641 Pain in right hand (principal); M25.539 Pain in unspecified wrist; M17.11 Unilateral primary osteoarthritis, right knee | CPT/HCPCS: 73560; 73565 ==

== ENCOUNTER 2020-12-19 10:31 | Outpatient (CLI) | payer OTHER, SELFPAY ==
--- NOTE | 2020-12-19 10:35 | MM_ITS ---
WS: [id number] BILATERAL DIGITAL SCREENING MAMMOGRAPHY WITH CAD CLINICAL INFORMATION: SCREENING HISTORY: Screening mammogram. No current complaints. COMPARISON: December 18, 2019 TECHNIQUE: Bilateral CC and MLO views. FINDINGS: Scattered fibroglandular densities bilaterally. No suspicious focal mass, asymmetry, calcifications, or architectural distortion. No evidence of malignancy. Punctate and lucent centered calcifications. MM/[place] [id number] IMPRESSION: BI-RADS: 2-Benign FOLLOW UP: 1 Year Follow-up Recommend return to annual screening mammography.
== END 2020-12-19 10:32 | disposition home or self-care (01) ==
LOC: RADSHAW 10:34
PROVIDERS: PCP Internal Medicine; Visit Provider Internal Medicine
DX: Z12.31 Encounter for screening mammogram for malignant neoplasm of breast (principal)
CPT/HCPCS: 77067

== ENCOUNTER → 2021-01-30 11:37 | Outpatient (BNVA) | payer OTHER, SELFPAY | PROVIDERS: PCP Internal Medicine; Visit Provider Specialist | DX: G43.709 Chronic migraine without aura, not intractable, without status migrainosus (principal) | CPT/HCPCS: 64615; J0585 ==

== ENCOUNTER → 2021-03-12 11:22 | Outpatient (BNVA) | payer OTHER, SELFPAY | PROVIDERS: PCP Internal Medicine; Visit Provider Specialist | DX: M25.561 Pain in right knee (principal); Z96.651 Presence of right artificial knee joint | CPT/HCPCS: 73560; 73565 ==

== ENCOUNTER 2021-04-07 08:54 | Outpatient (CLI) | payer OTHER, SELFPAY ==
--- NOTE | 2021-04-07 09:00 | NM_ITS ---
WS: [id number] THREE-PHASE BONE SCAN HISTORY: PRIMARY OSTEOARTHRITIS R KNEE COMPARISON: Radiographs 03/12/2021. Patient is is injected with 25.1 mCi Tc99m HDP intravenously. Immediate angiographic phase imaging is performed over the area of concern. Static blood pool imaging also performed. Two-hour whole-body sc intigrams performed in anterior and posterior projections. Additional large field of view imaging sub mitted as necessary. The immediate angiographic phase and static blood pool phase imaging is normal. Photopenic defect RIG HT knee from the prosthesis. There is no evidence for infection. There is increased uptake along the tibial plateau of the RIGHT knee. This corresponds to the prosthe tic component. Very minimal increased uptake within the femoral condyles. There is a small amount of increased uptake at the LEFT patella which is probably degenerative. NM/NM bone 3 phase [id number] IMPRESSION: 1. No osteomyelitis or cellulitis RIGHT knee. 2. Increased uptake along the tibial plateau of the RIGHT knee corresponding t o the surface of the tibial plateau prosthesis. This finding can be seen with p rosthetic loosening.
== END 2021-04-07 08:55 | disposition home or self-care (01) ==
LOC: NM 08:55
PROVIDERS: PCP Internal Medicine; Visit Provider Specialist
DX: M17.11 Unilateral primary osteoarthritis, right knee (principal)
CPT/HCPCS: 78315; A9561

== ENCOUNTER → 2021-05-08 10:37 | Outpatient (BNVA) | payer OTHER, SELFPAY | PROVIDERS: PCP Internal Medicine; Visit Provider Specialist | DX: G43.709 Chronic migraine without aura, not intractable, without status migrainosus (principal) | CPT/HCPCS: 64615; J0585 ==

== ENCOUNTER 2021-05-15 09:01 | Outpatient (CLI) | payer OTHER, SELFPAY ==
--- NOTE | 2021-05-15 09:07 | FL_ITS ---
WS: [id number] FL barium swallow modifd 03578 REASON FOR EXAM: Other dysphagia FLUOROSCOPY TIME: 1.8 minutes FINDINGS: The swallowing of various consistency barium meals was scintigraphically recorded in the fluoroscopic control. Detailed report of the swallowing will be rendered by the speech therapy department. No definite abnormality was identified during the examination. FL/FL barium swallow modifd 05500 IMPRESSION: Evaluation of swallowing as above.
== END 2021-05-15 09:02 | disposition home or self-care (01) ==
LOC: RAD 09:03
PROVIDERS: PCP Internal Medicine; Visit Provider Internal Medicine
DX: R05.9 Cough, unspecified (principal); R13.10 Dysphagia, unspecified
CPT/HCPCS: 74230; 92611

== ENCOUNTER 2021-06-11 10:49 | Outpatient (RCR) | payer OTHER, SELFPAY | END 2021-06-30 23:59 | disposition home or self-care (01) | LOC: SPT 10:49 | PROVIDERS: PCP Internal Medicine; Referring Provider Specialist; Visit Provider Specialist | DX: M25.561 Pain in right knee (principal) | CPT/HCPCS: 97110; 97162 ==

== ENCOUNTER 2021-07-01 06:00 | Outpatient (RCR) | payer OTHER, SELFPAY | END 2021-07-28 23:59 | disposition home or self-care (01) | LOC: SPT 06:00 | PROVIDERS: PCP Internal Medicine; Referring Provider Specialist; Visit Provider Specialist | DX: Z47.1 Aftercare following joint replacement surgery (principal); Z96.651 Presence of right artificial knee joint | CPT/HCPCS: 97110 ==

== ENCOUNTER 2021-07-11 09:10 | Outpatient (CLI) | payer OTHER, SELFPAY ==
--- NOTE | 2021-07-11 09:17 | FL_ITS ---
WS: [id number] OR barium swallow 08711 REASON FOR EXAM: COUGH FLUOROSCOPY TIME: 2.5 minutes TECHNIQUE: The passage of barium from the cervical esophagus into the stomach was monitored fluoroscopically wit h spot films obtained. The course of the barium through the stomach into the duodenum duodenal sweep was monitored with fluo roscopy and spot films obtained. FINDINGS: Esophagus demonstrated intermittent moderate tertiary contractions which at times cause some retentio n of the barium and even a small amount of reflux superiorly. There is no dilatation of the esophagus and the esophagus cleared with additional swallowing. At the gastroesophageal junction a small hiata l hernia was identified. No reflux from the stomach could be elicited. The stomach was pliable with normal peristalsis. The pylorus duodenal bulb and duodenal sweep are unremarkable. FL/FL barium swallow 69583 IMPRESSION: Mild to moderate dysmotility in the distal and mid esophagus. The clinical sign ificance of this is uncertain.
== END 2021-07-11 09:11 | disposition home or self-care (01) ==
PROVIDERS: PCP Internal Medicine; Visit Provider Internal Medicine
DX: R05.9 Cough, unspecified (principal)
CPT/HCPCS: 74220

== ENCOUNTER → 2021-07-16 10:24 | Outpatient (BNVA) | payer OTHER, SELFPAY | PROVIDERS: PCP Internal Medicine; Visit Provider Specialist | DX: Z96.651 Presence of right artificial knee joint (principal) | CPT/HCPCS: 73560; 73565 ==

== ENCOUNTER 2022-01-07 08:48 | Outpatient (CLI) | payer OTHER, SELFPAY ==
--- NOTE | 2022-01-07 08:55 | MM_ITS ---
WS: [id number] BILATERAL SCREENING DIGITAL TOMOSYNTHESIS MAMMOGRAM WITH CAD HISTORY: SCREENING COMPARISON: 12/17/2020, 12/18/2019 and 08/26/2018 Bilateral CC and MLO views with tomosynthesis and synthetic mammography submitted. Computer aided det ection analyzed. Breast composition: There are scattered areas of fibroglandular density. No suspicious masses, microc alcifications or architectural distortion. Bilateral calcifications and asymmetric fibroglandular den sities are stable. MM/[place] [address] IMPRESSION: BI-RADS: 2-Benign FOLLOW UP: 1 Year Follow-up
== END 2022-01-07 08:49 | disposition home or self-care (01) ==
LOC: RAD 08:48
PROVIDERS: PCP Internal Medicine; Visit Provider Internal Medicine
DX: Z12.31 Encounter for screening mammogram for malignant neoplasm of breast (principal)
CPT/HCPCS: 77063; 77067

== ENCOUNTER → 2022-01-23 09:27 | Outpatient (BNVA) | payer OTHER, SELFPAY | PROVIDERS: PCP Internal Medicine; Visit Provider Nurse Practitioner Family | DX: M25.561 Pain in right knee (principal); Z96.651 Presence of right artificial knee joint | CPT/HCPCS: 73560; 73565 ==

== ENCOUNTER → 2022-02-18 15:39 | Outpatient (BNVA) | payer OTHER, SELFPAY | PROVIDERS: PCP Internal Medicine; Visit Provider Specialist | DX: Z96.651 Presence of right artificial knee joint (principal); M17.11 Unilateral primary osteoarthritis, right knee | CPT/HCPCS: 73560; 73565 ==

== ENCOUNTER 2022-03-13 14:24 | Outpatient (CLI) | payer OTHER, SELFPAY ==
--- NOTE | 2022-03-13 14:35 | XR_ITS ---
WS: [id number] DEXA (DUAL ENERGY X-RAY ABSORPTIOMETRY) Bone mineral density was performed using a [employer] machine. HISTORY: OSTEOPENIA WITH HIGH FRACTURE RISK COMPARISON: None available. Lumbar spine BMD (L1-L4): 1.241 g/cm2 T score: 0.5 Z score: 0.9 Total hip BMD: Left: 0.901 g/cm2. T score: -0.8 Z score: -0.5 Right: 0.960 g/cm2. T score: -0.4 Z score: 0.0 10 year probability of a major osteoporotic fracture is 24.2%. XR/XR DEXA axial skeleton* 44561 IMPRESSION: NORMAL BONE MINERAL DENSITY based upon the WHO classification for females.
== END 2022-03-13 14:25 | disposition home or self-care (01) ==
PROVIDERS: PCP Internal Medicine; Visit Provider Internal Medicine
DX: M85.80 Other specified disorders of bone density and structure, unspecified site (principal)
CPT/HCPCS: 77080

== ENCOUNTER 2022-04-29 20:00 | Outpatient (CLI) | payer OTHER, SELFPAY | END 2022-04-29 20:01 | disposition home or self-care (01) | LOC: SLEEP 04-30 08:19 | PROVIDERS: PCP Internal Medicine; Visit Provider Specialist | DX: G47.33 Obstructive sleep apnea (adult) (pediatric) (principal) | CPT/HCPCS: 95810 ==

== ENCOUNTER → 2022-11-23 10:55 | Outpatient (BNVA) | payer MEDICARE, SELFPAY | PROVIDERS: PCP Internal Medicine; Visit Provider Specialist | DX: R20.0 Anesthesia of skin (principal); Z98.890 Other specified postprocedural states | CPT/HCPCS: 99214 ==

== ENCOUNTER → 2022-11-27 11:00 | Outpatient (BNVA) | payer MEDICARE, SELFPAY | PROVIDERS: PCP Internal Medicine; Visit Provider Specialist | DX: G56.02 Carpal tunnel syndrome, left upper limb (principal) | CPT/HCPCS: 95909; 99213 ==

== ENCOUNTER → 2022-12-09 10:43 | Outpatient (BNVA) | payer MEDICARE, SELFPAY | PROVIDERS: PCP Internal Medicine; Visit Provider Specialist | DX: Z96.651 Presence of right artificial knee joint (principal); M25.561 Pain in right knee; G89.29 Other chronic pain | CPT/HCPCS: 73560; 73565; 99213 ==

== ENCOUNTER 2023-01-13 11:21 | Outpatient (CLI) | payer MEDICARE, SELFPAY | END 2023-01-13 11:22 | disposition home or self-care (01) | LOC: SPT 11:22 | PROVIDERS: PCP Internal Medicine; Visit Provider Specialist | DX: Z46.89 Encounter for fitting and adjustment of other specified devices (principal); G56.02 Carpal tunnel syndrome, left upper limb; M25.532 Pain in left wrist | CPT/HCPCS: 97760; 99214; L3908 ==

== ENCOUNTER 2023-01-28 13:55 | Outpatient (CLI) | payer MEDICARE, SELFPAY | END 2023-01-28 13:56 | disposition home or self-care (01) | PROVIDERS: PCP Internal Medicine; Visit Provider Internal Medicine | DX: R19.7 Diarrhea, unspecified (principal) | CPT/HCPCS: 87493; 87506 ==

== ENCOUNTER → 2023-02-08 10:05 | Outpatient (BNVA) | payer MEDICARE, SELFPAY | PROVIDERS: PCP Internal Medicine; Visit Provider Nurse Practitioner Family | DX: G56.02 Carpal tunnel syndrome, left upper limb (principal) | CPT/HCPCS: 73110; 99214 ==

== ENCOUNTER 2023-02-17 14:07 | Outpatient (CLI) | payer MEDICARE, SELFPAY ==
--- NOTE | 2023-02-17 14:15 | MM_ITS ---
WS: [id number] BILATERAL 3D TOMOSYNTHESIS DIGITAL SCREENING MAMMOGRAPHY WITH CAD CLINICAL INFORMATION: SCREENING HISTORY: Screening mammogram. No current complaints. COMPARISON: 2021 TECHNIQUE: Bilateral CC and MLO views. FINDINGS: Scattered fibroglandular densities bilaterally. No suspicious focal mass, asymmetry, calcifications, or architectural distortion. No evidence of malignancy. Punctate and lucent centered calcifications. IMPRESSION: MM/[place] [address] BI-RADS: 2-Benign FOLLOW UP: 1 Year Follow-up Recommend return to annual screening mammography.
== END 2023-02-17 14:08 | disposition home or self-care (01) ==
LOC: RAD 14:09
PROVIDERS: PCP Internal Medicine; Visit Provider Internal Medicine
DX: Z12.31 Encounter for screening mammogram for malignant neoplasm of breast (principal)
CPT/HCPCS: 77063; 77067

== ENCOUNTER 2023-02-19 05:51 | Day surgery (SDC) | payer MEDICARE, SELFPAY ==
[2023-02-18 08:52] VITALS: BMI 31.8
[2023-02-19 06:08] VITALS: BP 150/94; PULSE 68; RESP 16; TEMP 36.3; O2SAT 97
[2023-02-19 06:22] LABS: Glucose Point of Care 132 mg/dL (70-110)
[2023-02-19] MEDS: acetaminophen 1,000 MG/100 ML PIGGYBACK 400 MG IV (06:23)
--- NOTE | 2023-02-19 06:58 | P.ANESASSM_ITS ---
Pre-Anesthetic Assessment Height/Weight: Height 1.78 m Weight 100.698 kg Temp Pulse Resp BP Pulse Ox O2 Del Method 97.4 F L 68 16 150/94 97 Room Air 02/19/23 06:08 02/19/23 06:08 02/19/23 06:08 02/19/23 06:08 02/19/23 06:08 02/19/23 06:08 Operation Date: 02/19/23 07:00 Proposed Procedures p LEFT CARPAL TUNNEL RELEASE 77032,G56.00(Left) - Albertina Mcclure MD Was Beta Tayla taken within 24 hours: N/A Was Clonidine taken within 24 hours: N/A Last intake: Intake Last Liquid Date 02/18/23 Last Liquid Time 21:30 Last Solid Date 02/18/23 Last Solid Time 21: Social No tobacco Exam alert, oriented x 3, clear to auscultation bilaterally and regular rate & rhythm Airway Submandibular: within normal limits Cervical ROM: within normal limits Mallampati: Class III History/ROS No significant history except as noted and No significant complaints CV/HEM On Xarelto, last taken about a week ago GI Gastroesophageal Reflux Disease Metabolic Morbid Obesity Anesthetic Plan ASA status: 2 Anesthesia: Choice Risk of > 500 ml blood loss (7ml/kg in children): No Medications/Allergies Home Medications Medication Instructions Recorded Confirmed Last Taken Type cetirizine 10 mg tablet 10 mg PO DAILY 11/20/19 02/18/23 02/18/23 History pantoprazole 40 mg tablet,delayed 40 mg PO DAILY 11/20/19 02/19/23 02/17/23 History release prednisolone acetate 1 % eye 1 drop ophthalmic (eye) DAILY 11/20/19 02/18/23 02/18/23 History drops,suspension rizatriptan 5 mg disintegrating 5 mg PO Q2H PRN Headache 11/23/19 02/19/23 11/27/19 History tablet multivitamin with iron 1 tab PO DAILY 11/28/19 02/19/23 11/27/19 History rivaroxaban 20 mg tablet (Xarelto) 20 mg PO DAILY 11/28/19 02/18/23 02/13/23 History acetaminophen 325 mg tablet 325 - 650 mg PO QID PRN Pain 02/22/20 02/18/23 02/22/20 History (Tylenol) celecoxib 200 mg capsule (Celebrex) 200 mg PO DAILY #30 caps 02/23/20 02/18/23 02/18/23 Rx semaglutide 0.25 mg or 0.5 mg (2 0.25 mg SUBCUT UNK 01/23/22 02/18/23 02/11/23 History mg/1.5 mL) subcutaneous pen injector (Ozempic) COCK UP SPLINT. #1 ea 01/13/23 02/08/23 Unknown Rx Allergies Allergy/AdvReac Type Severity Reaction Status Date / Time No Known Allergies Allergy Verified 02/19/23 06:05 [facility] Anesthesia Medical History Ch mgr wo neeraj w ntr w st Diabetes GERD (gastroesophageal reflux disease) History of high cholesterol Hx of deep venous thrombosis Sleep apnea Surgical History H/O eye surgery History of intraocular lens implant Hx of arthroscopic knee surgery Hx of section Hx of removal of cyst Hx of shoulder surgery Family History Other Diabetes Social History Smoking and tobacco status: never smoked Data Anesthesia Cardiac Studies: No Data to Display
[2023-02-19] MEDS: sodium chloride 0.9% 1,000 ML 30 ML IV (06:59)
--- NOTE | 2023-02-19 07:00 | W.PM.OPSUD ---
Surgery/Procedure H&P Update DATE OF PROCEDURE: February 19, 2023 DATE H&P PERFORMED: 02/08/23 H&P UPDATE INFORMATION: I have reviewed H&P completed within last 30 days, I have examined patient prior to procedure, No changes to prior documentation and H&P is in [facility] EMR on date indicated PLANNED PROCEDURE: Operation Date: 02/19/23 07:00 Proposed Procedures p LEFT CARPAL TUNNEL RELEASE [id number],G56.00(Left) - Albertina Mcclure MD Related Problem List Diagnoses (1) Left carpal tunnel syndrome:
[2023-02-19] MEDS: ceFAZolin 2,000 MG in sodium chloride 0.9% (plus) 50 ML 100 MG IV (07:05)
[2023-02-19] MEDS: BUPivacaine 0.5% INJ 30 mL INJECTION (07:37)
[2023-02-19 08:02] VITALS: BP 121/73; PULSE 90; RESP 14; TEMP 36.1; O2SAT 96
--- NOTE | 2023-02-19 08:04 | P.OP_ITS ---
Operative Report Date of procedure: February 19, 2023 Pre-op diagnosis: Left carpal tunnel syndrome Post-op diagnosis: Left carpal tunnel syndrome Post-op findings: Significant compression across the carpal canal with discoloration and compression across the median nerve Procedure done: Left carpal tunnel release Surgeon: Albertina Mcclure MD Anesthesia: General (Per LMA, ASA 3) Estimated blood loss (mL): 1 Tourniquet time (min): 15 (At 250 mmHg) IV fluids (mL): 400 Urine output (mL): 0 (No Mtz) Complications: None Findings: Significant compression across the median nerve with purplish discoloration and hourglass deformity. Condition: stable Disposition: PACU (Then return to same-day surgery for discharge to home) Brief History: Lillie is an established 67 year old female who presents for same-day left carpal tunnel release.? Patient states she has followed up with her PCP was educated about her blood thinner before surgery. She has previously undergone r ight carpal tunnel release with significant improvement.? Prior to surgical intervention, the patient was using a night splint which was of some benefit. Nerve conduction study confirmed carpal tunnel syndrome. The risks and complications were discussed in the office by Dutch Hennessy NP, and questions were answered at that time. Consents were signed. Preoperatively, the patient was seen and consents were once again discussed and signed again with the patient by me. Procedure: The patient was brought to the operating theater. Patient was administered a general anesthesia per LMA, ASA 3. The tourniquet was elevated to 250 mmHg for a total tourniquet time of 15 minutes. The patient was also given Ancef 2 g preoperatively. The arm was then prepped and draped with DuraPrep in usual fashion with the arm draped free. A surgical pause was performed. At the time, the surgical pause, we confirmed the site and side of surgery. We also confirmed the patient's identity, appropriate and timely administration of preoperative antibiotics and preoperative surgical markings. An incision was then made along the thenar crease. The incision crossed the wrist joint in a curvilinear fashion. Dissection continued through skin and soft tissues using a scalpel. The palmaris longus was identified along with the transverse carpal ligament. Each of these was released carefully to avoid injury to the median nerve. We were able to dissect gently into the carpal canal which was noted to be quite tight with significant compression across the median nerve. The nerve was visualized and was an hourglass shape. The canal was subsequently palpated to assure there was no bony encroachment upon the canal. There was a quite thickened fibrous tissue within the canal, and this was opened longitudinally as well. The canal was then palpated distally and proximally to assure that my small finger was passed easily without impingement. Finding this to be so, attention was directed to closure. The wound was irrigated with ropivacaine plain. It was then closed with 3-0 nylon in an interrupted mattress fashion. Sterile dressing was then placed consisting of Dermabond, OpSite, sterile soft roll, and an Mark wrap. The tourniquet was released after 15 minutes. There were no complications. There were no specimens. The procedure was well tolerated. Plan is the patient will be discharged home. Related Problem List Diagnoses (1) Left carpal tunnel syndrome:
[2023-02-19 08:05] VITALS: BP 126/74; PULSE 85; RESP 11; O2SAT 100
[2023-02-19 08:10] VITALS: BP 138/83; PULSE 100; RESP 20; O2SAT 100
[2023-02-19 08:14] VITALS: BP 138/83; PULSE 100; RESP 18; TEMP 36.1; O2SAT 97
[2023-02-19 08:16] VITALS: BP 127/73; PULSE 88; RESP 16; TEMP 36.6; O2SAT 97
[2023-02-19] MEDS: HYDROcodone-acetaminophen 5-325 mg Tablet 1 TAB PO (08:30)
--- NOTE | 2023-02-19 08:47 | ANE.PACU2 ---
Inpatient post-anesthesia follow up: Airway intact: Yes Vital signs: Temperature 97.8 F Pulse Rate 88 Respiratory Rate 16 Blood Pressure 127/73 Pulse Oximetry 97 Oxygen Delivery Me thod Room Air Oxygen Flow Rate 6 Fraction of Inspir ed Oxygen Hydration adequate: Yes Nausea and vomiting: No Pain level: 2 Mental status: Baseline
== END 2023-02-19 08:50 | disposition home or self-care (01) ==
PROVIDERS: PCP Internal Medicine; Visit Provider Specialist
PROC: (CPT 64721; principal; 2023-02-19 07:00)
DX: G56.02 Carpal tunnel syndrome, left upper limb (principal); Z79.01 Long term (current) use of anticoagulants; K21.9 Gastro-esophageal reflux disease without esophagitis; E66.01 Morbid (severe) obesity due to excess calories; Z68.31 Body mass index [BMI] 31.0-31.9, adult; E11.9 Type 2 diabetes mellitus without complications; Z86.718 Personal history of other venous thrombosis and embolism; G47.30 Sleep apnea, unspecified
CPT/HCPCS: 64721; 36416; 82962; J0131; J0690; J1100; J2405; J2704; J3010; J3490; J7030

== ENCOUNTER → 2023-03-15 08:03 | Outpatient (BNVA) | payer MEDICARE, SELFPAY | PROVIDERS: PCP Internal Medicine; Visit Provider Nurse Practitioner | DX: Z98.890 Other specified postprocedural states (principal); G56.02 Carpal tunnel syndrome, left upper limb | CPT/HCPCS: 99024 ==

== ENCOUNTER → 2023-05-19 14:52 | Outpatient (BNVA) | payer MEDICARE, SELFPAY | PROVIDERS: PCP Internal Medicine; Visit Provider Nurse Practitioner | DX: M25.632 Stiffness of left wrist, not elsewhere classified (principal); Z98.890 Other specified postprocedural states; G56.02 Carpal tunnel syndrome, left upper limb | CPT/HCPCS: 99214 ==

== ENCOUNTER 2023-06-02 10:53 | Outpatient (RCR) | payer MEDICARE, SELFPAY | END 2023-06-30 23:59 | disposition home or self-care (01) | LOC: SOT 10:53 | PROVIDERS: PCP Internal Medicine; Visit Provider Nurse Practitioner | DX: M25.512 Pain in left shoulder (principal); M25.511 Pain in right shoulder | CPT/HCPCS: 97022; 97110; 97140; 97165 ==

== ENCOUNTER → 2023-06-30 15:04 | Outpatient (BNVA) | payer MEDICARE, SELFPAY | PROVIDERS: PCP Internal Medicine; Visit Provider Nurse Practitioner | DX: M25.511 Pain in right shoulder (principal); M19.011 Primary osteoarthritis, right shoulder | CPT/HCPCS: 20610; 73030; 99214; J1100; J2795; J3301 ==

== ENCOUNTER 2023-07-19 09:33 | Outpatient (RCR) | payer MEDICARE, SELFPAY | END 2023-07-29 23:59 | disposition home or self-care (01) | LOC: SPT 09:33 | PROVIDERS: PCP Internal Medicine; Visit Provider Internal Medicine | DX: M25.511 Pain in right shoulder (principal) | CPT/HCPCS: 97110; 97161; G0283 ==

== ENCOUNTER 2023-07-21 13:26 | Outpatient (CLI) | payer MEDICARE, SELFPAY ==
--- NOTE | 2023-07-21 13:31 | XRR_ITS ---
PROCEDURE INFORMATION: Exam: XR Left Foot Exam date and time: 07/21/2023 1:47 PM Age: 68 years old Clinical indication: Pain and injury or trauma; Other: Dropped something on foot week ago, bruised; Blunt trauma; Left; Additional info: Pain in left foot/urticaria TECHNIQUE: Imaging protocol: Radiologic exam of the left foot. Views: 3 or more views. COMPARISON: No relevant prior studies available. FINDINGS: Bones/joints: No evidence of acute fracture or subluxation. Mild midfoot osteoarthritis. Tarsometatarsal alignment is maintained. Small plantar calcaneal spur and Achilles enthesophyte. If there is concern for plantar fascial or Achilles tendon pathology, follow-up outpatient MRI may be helpful. Soft tissues: Mild soft tissue of the dorsum of the midfoot. No radiopaque foreign body. XR/XR foot LT min 3V* [id number] IMPRESSION: 1. Dorsal soft tissue edema without evidence of acute fracture or subluxation. If there is ongoing clinical concern, consider correlation with CT.
== END 2023-07-21 13:27 | disposition home or self-care (01) ==
LOC: RAD 13:27
PROVIDERS: PCP Internal Medicine; Visit Provider Nurse Practitioner Family
DX: M79.672 Pain in left foot (principal); R60.0 Localized edema
CPT/HCPCS: 73630

== ENCOUNTER 2023-07-30 06:00 | Outpatient (RCR) | payer MEDICARE, SELFPAY | END 2023-08-29 23:59 | disposition home or self-care (01) | LOC: SPT 06:00 | PROVIDERS: PCP Internal Medicine; Visit Provider Internal Medicine | DX: M25.511 Pain in right shoulder (principal) | CPT/HCPCS: 97110; G0283 ==

== ENCOUNTER → 2023-08-23 10:37 | Outpatient (BNVA) | payer MEDICARE, SELFPAY | PROVIDERS: PCP Internal Medicine; Visit Provider Nurse Practitioner | DX: M19.011 Primary osteoarthritis, right shoulder (principal); R29.898 Other symptoms and signs involving the musculoskeletal system | CPT/HCPCS: 99213 ==

== ENCOUNTER 2023-09-21 08:23 | Outpatient (CLI) | payer MEDICARE, SELFPAY ==
--- NOTE | 2023-09-21 08:30 | IR_ITS ---
WS: [id number] SHOULDER ARTHROGRAM RIGHT Fluoroscopic guided right shoulder arthrogram CLINICAL INFORMATION: right shoulder pain and weakness PROCEDURE: The procedure including risks, benefits and complications were discussed with the patient, who agreed to proceed. Using sterile technique, the patient was prepped and draped in the usual ster ile fashion. After 1% lidocaine injection using fluoroscopic guidance, a 22-gauge spinal needle was a dvanced into the glenohumeral joint. Approximately 13 ml of a solution containing 10 ml normal saline , 10 ml Omnipaque 240, 2ml 1% lidocaine, and 0.1 ml gadolinium was administered. No immediate compl ications. FLUOROSCOPY TIME: 1min [id number] # of spot films: 2 IMPRESSION: 1. Uncomplicated fluoroscopic-guided right shoulder arthrogram. 2. Contrast extends into the subacromial and subdeltoid space space compatible with full-thickness r otator cuff tear. Please see the following MRI for further detail.
--- NOTE | 2023-09-21 08:32 | MR_ITS ---
WS: [id number] MRI RIGHT SHOULDER ARTHROGRAM TECHNIQUE: Sagittal T2, coronal T1, T2 and proton density imaging. Axial gradient PDE imaging. Multip lanar T1 imaging with fat saturation technique obtained after intra-articular administration of contr ast. CLINICAL INFORMATION: Right shoulder pain and weakness COMPARISON: MRI 08/12/2018 FINDINGS: Prior postoperative changes multiple rotator cuff repairs. Prominent osteophyte along the medial [place] ral head and neck. Advanced arthritis at the AC joint with mild downsloping acromion. Slight subacrom ial spurring. Interval development of lobulated cyst along the AC joint extending over the distal cla vicle and acromion. Largest cyst measures approximately 2.8 x 1.8 cm. Additional cluster of cysts sundeep suring 2.0 x 1.3 cm. Subacromial and subdeltoid fluid. Advanced degenerative narrowing at the glenohu meral articulation with subchondral cystic change involving the glenoid. Complete small rotator cuff defect involving the anterior superior supraspinatus with contrast commun icating with the subacromial and subdeltoid spaces likely postoperative at the site of anchoring. Thi s is similar to previous. No tendon retraction. Supraspinatus is otherwise thin but intact. Infraspin atus appears intact. Normal teres minor. Subscapularis appears intact. Biceps tendon is visualized in the bicipital groove. Biceps labral anchor appears intact. Intra-articular biceps tendon appears int act. Degenerative fraying with chronic tear of the posterior glenoid labrum. This is similar to previ ous. IMPRESSION: 1. Interval development of large synovial cysts at the AC joint described above with communication v isualized on the post gadolinium images to the AC joint. 2. Full-thickness defect in the anterior superior supraspinatus tendon unchanged from the prior exam ination may be postoperative. No tendon retraction. Contrast communicates through this defect to the subacromial subdeltoid bursa. 3. Rotator cuff otherwise appears intact. 4. Biceps tendon visualized in the bicipital groove. 5. Advanced narrowing of the glenohumeral articulation with advanced hypertrophic changes. Prominent osteophyte along the medial humeral head and neck. 6. Partial tear with degenerative fraying of the posterior labrum. Subchondral cystic change involvi ng the glenoid.
== END 2023-09-21 08:24 | disposition home or self-care (01) ==
LOC: RAD 08:24
PROVIDERS: PCP Internal Medicine; Visit Provider Nurse Practitioner
DX: M19.011 Primary osteoarthritis, right shoulder (principal); R29.898 Other symptoms and signs involving the musculoskeletal system; M71.311 Other bursal cyst, right shoulder
CPT/HCPCS: 23350; 73223; 77002; A9577; Q9966

== ENCOUNTER → 2023-11-15 07:58 | Outpatient (BNVA) | payer MEDICARE, SELFPAY | PROVIDERS: PCP Internal Medicine; Visit Provider Specialist | DX: M19.011 Primary osteoarthritis, right shoulder (principal); R29.898 Other symptoms and signs involving the musculoskeletal system | CPT/HCPCS: 99214 ==

== ENCOUNTER 2023-11-19 11:45 | Outpatient (RCR) | payer MEDICARE, SELFPAY | END 2023-11-28 23:59 | disposition home or self-care (01) | LOC: SPT 11:45 | PROVIDERS: PCP Internal Medicine; Visit Provider Specialist | DX: M25.511 Pain in right shoulder (principal) | CPT/HCPCS: 97110; 97161 ==

== ENCOUNTER 2023-11-29 06:00 | Outpatient (RCR) | payer MEDICARE, SELFPAY | END 2023-12-29 23:59 | disposition home or self-care (01) | LOC: SPT 06:00 | PROVIDERS: PCP Internal Medicine; Visit Provider Specialist | DX: M25.511 Pain in right shoulder (principal) | CPT/HCPCS: 97110 ==

== ENCOUNTER 2023-12-30 06:00 | Outpatient (RCR) | payer MEDICARE, SELFPAY | END 2024-01-29 23:59 | disposition home or self-care (01) | LOC: SPT 06:00 | PROVIDERS: PCP Internal Medicine; Visit Provider Specialist | DX: M25.511 Pain in right shoulder (principal) | CPT/HCPCS: 97110 ==

== ENCOUNTER → 2024-01-03 07:52 | Outpatient (BNVA) | payer MEDICARE, SELFPAY | PROVIDERS: PCP Internal Medicine; Visit Provider Specialist | DX: M19.011 Primary osteoarthritis, right shoulder (principal); R29.898 Other symptoms and signs involving the musculoskeletal system | CPT/HCPCS: 99213 ==

== ENCOUNTER 2024-01-30 06:00 | Outpatient (RCR) | payer MEDICARE, SELFPAY | END 2024-02-28 23:59 | disposition home or self-care (01) | LOC: SPT 06:00 | PROVIDERS: PCP Internal Medicine; Visit Provider Specialist | DX: M25.511 Pain in right shoulder (principal) | CPT/HCPCS: 97110 ==

== ENCOUNTER → 2024-02-16 14:24 | Outpatient (BNVA) | payer MEDICARE, SELFPAY | PROVIDERS: PCP Internal Medicine; Visit Provider Specialist | DX: M19.011 Primary osteoarthritis, right shoulder (principal); R29.898 Other symptoms and signs involving the musculoskeletal system | CPT/HCPCS: 20610; 73030; 99213; J1100; J2795; J3301 ==

== ENCOUNTER → 2024-04-10 08:20 | Outpatient (BNVA) | payer MEDICARE, SELFPAY | PROVIDERS: PCP Internal Medicine; Visit Provider Specialist | DX: Z96.651 Presence of right artificial knee joint (principal); M17.0 Bilateral primary osteoarthritis of knee | CPT/HCPCS: 73560; 73565; 99213 ==

== ENCOUNTER → 2024-05-02 14:24 | Outpatient (BNVA) | payer MEDICARE, SELFPAY | PROVIDERS: PCP Internal Medicine; Visit Provider Specialist | DX: G31.84 Mild cognitive impairment of uncertain or unknown etiology (principal); R03.0 Elevated blood-pressure reading, without diagnosis of hypertension | CPT/HCPCS: 36415; 82542; 82607; 83520; 96116; 99214; 99215 ==

== ENCOUNTER 2024-05-05 08:49 | Outpatient (CLI) | payer MEDICARE, SELFPAY ==
--- NOTE | 2024-05-05 08:57 | MM_ITS ---
WS: [id number] BILATERAL SCREENING DIGITAL TOMOSYNTHESIS MAMMOGRAM WITH CAD HISTORY: SCREENING COMPARISON: 02/17/2023, 01/07/2022, 12/18/2019 Bilateral CC and MLO views with tomosynthesis and synthetic mammography submitted. Computer aided det ection analyzed. Breast composition: The breasts are heterogeneously dense, which may obscure small masses. No suspici ous masses, microcalcifications or architectural distortion. Scattered asymmetries of increased densi ty within each breast. The asymmetries and calcifications remain stable since at least 2019. MM/MM psychiatric BI tomosynthesis [id number] IMPRESSION: BI-RADS: 2 - Benign FOLLOW UP: 1 Year Follow-up
== END 2024-05-05 08:50 | disposition home or self-care (01) ==
PROVIDERS: PCP Internal Medicine; Visit Provider Internal Medicine
DX: Z12.31 Encounter for screening mammogram for malignant neoplasm of breast (principal); R92.333 Mammographic heterogeneous density, bilateral breasts; N64.89 Other specified disorders of breast; R92.1 Mammographic calcification found on diagnostic imaging of breast
CPT/HCPCS: 77063; 77067

== ENCOUNTER 2024-05-10 07:47 | Outpatient (CLI) | payer MEDICARE, SELFPAY ==
--- NOTE | 2024-05-10 07:51 | MR_ITS ---
WS: [id number] MRI HEAD WITHOUT CONTRAST TECHNIQUE: Sagittal T1, T2 axial, T2 axial FLAIR, axial and coronal T1 images, axial susceptibility w eighted imaging, axial diffusion weighted images, and coronal T2 images were obtained. CLINICAL INFORMATION: MILD COGNITIVE IMPAIRMENT W/MEMORY LOSS COMPARISON: 04/30/2020 FINDINGS: Susceptibility artifact from shoulder hardware degrades some images. No evidence of restricted diffusion to suggest acute ischemia. Ventricular system and basilar cistern s are patent. Mild small vessel changes with mild parenchymal volume loss only minimally progressed s ulysses 2019. Temporal lobes hippocampal formations are normal in appearance. No significant atrophy. No hemosiderin on the susceptibly weighted images. Normal posterior fossa. Normal vascular flow voids at the skull base. No extra-axial fluid collection s. No mass of mass or mass effect. Mild mucosal thickening in the ethmoid air cells. Mastoid air cell s are well aerated. Normal posterior nasopharynx. MR/MR head wo con* [id number] IMPRESSION: 1. No evidence of restricted diffusion to suggest acute ischemia. 2. Mild small vessel changes with mild parenchymal volume loss. This is only m inimally progressed since 2019 3. Temporal lobes and hippocampal formations are normal in appearance. No sign ificant atrophy 4. No hemosiderin on the susceptibly weighted images. 5. No other acute findings.
== END 2024-05-10 07:48 | disposition home or self-care (01) ==
LOC: RAD 07:47
PROVIDERS: PCP Internal Medicine; Visit Provider Specialist
DX: G31.84 Mild cognitive impairment of uncertain or unknown etiology (principal)
CPT/HCPCS: 70551

== ENCOUNTER 2024-09-28 10:18 | Outpatient (CLI) | payer MEDICARE, SELFPAY ==
--- NOTE | 2024-09-28 10:28 | XR_ITS ---
WS: [id number] Lumbar spine, 3 views, 09/28/2024 Clinical Data: L HIP PAIN Comparison: Lumbar spine, 10/30/2015 Findings: No compression fractures are seen. There is degenerative disc narrowing at L2- L3, L4-L5 and L5-S1. There is an anterolisthesis of 0.9 cm of L4 and L5 unchanged. There is anterior osteoarthritis of the L1-L3 vertebral bodies and L5 vertebral body. The transverse processes and SI joints are normal. XR/XR lumbar spine 2-3V* [id number] Impression: 1. Multilevel degenerative arthritis and disc narrowing. 2. Anterior subluxation of L4 and L5 unchanged.
--- NOTE | 2024-09-28 10:28 | XR_ITS ---
WS: [id number] Left hip, AP and frog-leg views, 09/28/2024 Clinical Data: L HIP PAIN Comparison: None. Findings: No fractures or dislocations are seen. The left hip joint is intact. No erosion, sclerosis, narrowing or fragmentation of the left femoral head is seen. The soft tissues are not remarkable. The adjacent pelvis is normal. XR/XR hip LT 2-3V wo/w pel* [id number] Impression: Negative left hip.
== END 2024-09-28 10:19 | disposition home or self-care (01) ==
PROVIDERS: PCP Internal Medicine; Visit Provider Nurse Practitioner Family
DX: M25.552 Pain in left hip (principal); M51.369 Other intervertebral disc degeneration, lumbar region without mention of lumbar back pain or lower extremity pain; M51.379 Other intervertebral disc degeneration, lumbosacral region without mention of lumbar back pain or lower extremity pain; R93.7 Abnormal findings on diagnostic imaging of other parts of musculoskeletal system; M47.896 Other spondylosis, lumbar region
CPT/HCPCS: 72100; 73502

== ENCOUNTER → 2024-10-25 08:10 | Outpatient (BNVA) | payer MEDICARE, SELFPAY | PROVIDERS: PCP Internal Medicine; Visit Provider Specialist | DX: M25.552 Pain in left hip (principal) | CPT/HCPCS: 73502; 99214 ==

== ENCOUNTER 2024-10-30 09:24 | Outpatient (CLI) | payer MEDICARE, SELFPAY ==
--- NOTE | 2024-10-30 09:30 | MR_ITS ---
WS: [id number] MRI LEFT HIP WITHOUT CONTRAST. COMPARISON: Radiograph 10/25/2024 Multiplanar, multisequence imaging is performed without contrast. Symmetric appearance of the hips bilaterally. There is very mild narrowing of the hip joints and mild loss of cartilage. LEFT labrum appears intact. No fractures or marrow edema. There is very slight increased fluid in the LEFT hip joint as compared to the RIGHT. No distention of the trochanteric bursa. No CAM deformity. Symmetric appearance of the soft tissues and muscles surrounding each hip. No free fluid within the pelvis. MR/MR hip LT wo con* [id number] IMPRESSION: 1. Very mild LEFT hip joint narrowing and osteoarthritis. 2. Very slight synovitis LEFT hip, asymmetric to the RIGHT hip joint. 3. No labral tear.
== END 2024-10-30 09:25 | disposition home or self-care (01) ==
PROVIDERS: PCP Internal Medicine; Visit Provider Specialist
DX: M25.552 Pain in left hip (principal)
CPT/HCPCS: 73721

== ENCOUNTER → 2024-11-13 07:52 | Outpatient (BNVA) | payer MEDICARE, SELFPAY | PROVIDERS: PCP Internal Medicine; Visit Provider Specialist | DX: M25.552 Pain in left hip (principal); M54.50 Low back pain, unspecified | CPT/HCPCS: 99213 ==

== ENCOUNTER → 2024-11-14 14:39 | Outpatient (BNVA) | payer MEDICARE, SELFPAY | PROVIDERS: PCP Internal Medicine; Visit Provider Specialist | DX: G31.84 Mild cognitive impairment of uncertain or unknown etiology (principal); R03.0 Elevated blood-pressure reading, without diagnosis of hypertension | CPT/HCPCS: 99213 ==

== ENCOUNTER 2024-11-19 14:14 | Emergency (ER) | payer MEDICARE, SELFPAY ==
[2024-11-19 14:15] VITALS: BP 127/73; PULSE 89; RESP 16; TEMP 36.7; O2SAT 95; BMI 30.2
--- NOTE | 2024-11-19 14:22 | ECG_ITS ---
[employer] Test Date: 2024-11-19 Pat Name: Lillie Smith Department: Room: Gender: Female Director Of Services: : 1955 Requested By: Tegan Vann Order Number: [id number] Cr MD: Lc Nichols M.D. Measurements Intervals [place] Rate: 86 P: 70 MI: 207 QRS: 36 QRSD: 88 T: 63 QT: 362 QTc: 435 Interpretive Statements SINUS RHYTHM LOW QRS VOLTAGE IN PRECORDIAL LEADS [QRS DEFLECTION < 1.0 mV IN CHEST LEADS] POSSIBLE RIGHT VENTRICULAR CONDUCTION DELAY [RSR (QR) IN V1/V2] MINIMAL ST DEPRESSION [0.025+ mV ST DEPRESSION] No previous ECG available for comparison Electronically Signed On 11-19-2024 19:17:27 CDT by Lc Nichols M.D. [email or web address] [email or web address]
[2024-11-19 14:46] LABS: Basophils % 0.5 %; Eosinophils # 0.1 10^3/uL (0.0-0.8); Eosinophils % 1.7 %; Hematocrit 41.7 % (36-47); Lymphocytes # 1.8 10^3/uL (0.8-4.8); Lymphocytes % 28.4 %; Mean Corpuscular HGB Conc 33.8 g/dL (30-55); Mean Corpuscular Hemoglobin 31.2 pg (27-33); Mean Corpuscular Volume 92.3 fl (85-98); Mean Platelet Volume 11.1 fL (7.4-10.4); Monocytes # 0.4 10^3/uL (0.2-0.9); Monocytes % 5.5 %; Neutrophils # 4.06 10^3/uL (1.8-7.7); Neutrophils % 63.7 %; Nucleated Red Blood Cells % 0 %; Platelet Count 203 10^3/cmm (157-399); Red Blood Count 4.52 10^6/uL (3.85-5.65); Red Cell Distribution Width 12.2 % (12.1-15.1); White Blood Count 6.37 10^3/uL (3.29-11.43)
[2024-11-19 15:06] LABS: Alanine Aminotransferase 14 U/L (0-33); Albumin Level 4.2 g/dL (3.5-5.2); Alkaline Phosphatase 80 U/L (35-105); Anion Gap 16.9 (5-19); Aspartate Amino Transferase 16 U/L (0-32); Blood Urea Nitrogen 11 mg/dL (8-23); Calcium 9.1 mg/dL (8.5-10.5); Carbon Dioxide 21 mmol/L (22-29); Chloride 106 mmol/L (98-107); Creatinine Clr Calc Pharmacy 85.5161; Globulin 2.6 g/dL (1.3-4.6); Glomerular Filtration Rate 83.5 mL/min (90-130); Glucose 195 mg/dL (65-115); Osmolality Calculated 295 mOsm/kg (285-295); Potassium 3.9 mmol/L (3.5-5.1); Sodium 140 mmol/L (136-145); Total Bilirubin 0.4 mg/dL (0.15-1.2); Total Protein 6.8 g/dL (6.6-8.7)
--- NOTE | 2024-11-19 15:16 | W.ED.GENADLT ---
HPI - General Adult General: Chief complaint: Airway/Esophagus Foreign Body Stated complaint: SYNCOPE Time Seen by Provider: 11/19/24 15:12 Source: patient Mode of arrival: ambulatory Limitations: no limitations History of Present Illness: 69-year-old female states she is eating and felt like she had something stuck in her throat and started feeling lightheaded and had a brief syncopal event. States that she was only out for few seconds she denies any headache or chest pain before. She states she feels back to her baseline and feels completely normal had no vomiting is able to swallow any difficulties currently. Associated symptoms: Reports syncope; Deny chest pain, dyspnea, headache(s), nausea, rash or vomiting Related Data Home Medications ?Medication ?Instructions ?Recorded ?Confirmed pantoprazole 40 mg tablet,delayed 40 mg PO DAILY 11/20/19 11/14/24 release prednisolone acetate 1 % eye 1 drop ophthalmic (eye) DAILY 11/20/19 11/14/24 drops,suspension rivaroxaban 20 mg tablet (Xarelto) 20 mg PO DAILY 11/28/19 11/14/24 acetaminophen 325 mg tablet 325 - 650 mg PO QID PRN Pain 02/22/20 11/14/24 (Tylenol) semaglutide 0.25 mg or 0.5 mg (2 0.25 mg SUBCUT UNK 01/23/22 11/14/24 mg/1.5 mL) subcutaneous pen injector (Ozempic) venlafaxine 37.5 mg 37.5 mg PO DAILY 06/30/23 11/14/24 capsule,extended release 24 hr meloxicam 7.5 mg tablet 7.5 mg PO DAILY 11/14/24 11/14/24 rizatriptan 10 mg tablet See Rx Instructions PO .COMPLEX 11/14/24 11/14/24 Allergies Allergy/AdvReac Type Severity Reaction Status Date / Time Alpha-Gal Allergy ALGY-Hives Verified 11/14/24 15:57 ([id number]-Tmncc-5,3-Gala Review of Systems Const: Denies: fever(s), chills, body aches or change in appetite ENMT: Denies: throat pain or dental pain Card: Reports: syncope; Denies: chest pain Resp: Denies: dyspnea GI: Denies: abdominal pain, nausea, vomiting or diarrhea : Denies: dysuria Musc: Denies: neck pain or back pain Skin/Breast: Denies: rash Neuro: Denies: headache(s) PFSH ED PFSH: Medical History Weakness of right shoulder Acromioclavicular joint arthritis Primary osteoarthritis, right shoulder Decreased range of motion of left wrist Hx of deep venous thrombosis History of high cholesterol Diabetes GERD (gastroesophageal reflux disease) Sleep apnea Ch mgr wo neeraj w ntr w st Surgical History H/O eye surgery Hx of shoulder surgery Hx of section Hx of arthroscopic knee surgery Hx of removal of cyst History of intraocular lens implant Family History Other Diabetes Hx of shoulder surgery Social History Smoking and tobacco/nicotine status: never used tobacco/nicotine Alcohol intake: current Alcohol intake frequency: few times a week Physical Exam Const: COMMON NORMALS: no acute distress, patient oriented x3 and healthy appearing HENMT: COMMON NORMALS: normocephalic and atraumatic HEAD & SCALP: normocephalic and atraumatic Eye: COMMON NORMALS: conjunctivae normal CONJUNCTIVA: Yes conjunctivae normal Neck/C-Spine: COMMON NORMALS: full ROM and supple Chest: COMMONS NORMALS: normal inspection of the chest Resp: COMMON NORMALS: normal respiratory effort, No retractions, No use of accessory muscles and clear to auscultation bilaterally AUSCULTATION: clear to auscultation bilaterally Cardio: COMMON NORMALS: regular rate, regular rhythm and No murmurs present (Cardio) RATE: regular rate RHYTHM: regular rhythm Extremity: COMMON NORMALS: normal to inspection and full ROM Neuro: COMMON NORMALS: patient oriented x3, moves all extremities and no focal motor deficits Psych: COMMON NORMALS: mental status grossly normal, Normal thought process present and cooperative THOUGHT PROCESS: Normal thought process present Skin: COMMON NORMALS: no rashes or lesions noted and no wounds GENERAL SKIN EXAM: no rashes or lesions noted Course Vital Signs: Vital signs: Vital Signs Temperature 98.0 F 11/19/24 14:15 Pulse Rate 89 11/19/24 14:15 Respiratory Rate 16 11/19/24 14:15 Blood Pressure 127/73 11/19/24 14:15 Pulse Oximetry 95 11/19/24 14:15 Oxygen Delivery Me thod Room Air 11/19/24 14:15 MDM - General Adult Medical Decision Making Patient presents after a syncopal event where she was choking likely vagal old causing her syncope. Blood work EKG here is normal she feels much improved she is stable for discharge follow-up PCP return if worsening. Medical Records I reviewed the patient's medical records. Lab Data I reviewed the patient's lab results. 11/19/24 14:40 11/19/24 14:40 Laboratory Results WBC 6.37 10^3/uL (3.29-11.43) 11/19/24 14:40 RBC 4.52 10^6/uL (3.85-5.65) 11/19/24 14:40 Hgb 14.10 g/dL (11.27-16.99) 11/19/24 14:40 Hct 41.7 % (36-47) 11/19/24 14:40 MCV 92.3 fl (85-98) 11/19/24 14:40 MCH 31.2 pg (27-33) 11/19/24 14:40 MCHC 33.8 g/dL (30-55) 11/19/24 14:40 RDW 12.2 % (12.1-15.1) 11/19/24 14:40 Plt Count 203 10^3/cmm (157-399) 11/19/24 14:40 MPV 11.1 fL (7.4-10.4) H 11/19/24 14:40 Neut % (Auto) 63.7 % 11/19/24 14:40 Lymph % (Auto) 28.4 % 11/19/24 14:40 [place] % (Auto) 5.5 % 11/19/24 14:40 Eos % (Auto) 1.7 % 11/19/24 14:40 Baso % (Auto) 0.5 % 11/19/24 14:40 Neut # (Auto) 4.06 10^3/uL (1.8-7.7) 11/19/24 14:40 Lymph # (Auto) 1.8 10^3/uL (0.8-4.8) 11/19/24 14:40 [place] # (Auto) 0.4 10^3/uL (0.2-0.9) 11/19/24 14:40 Eos # (Auto) 0.1 10^3/uL (0.0-0.8) 11/19/24 14:40 Baso # (Auto) 0.0 10^3/uL (0.0-0.1) 11/19/24 14:40 Nucleated RBC % (auto) 0 % 11/19/24 14:40 Nucleated RBCs # 0.0 /100WBC 11/19/24 14:40 Sodium 140 mmol/L (136-145) 11/19/24 14:40 Potassium 3.9 mmol/L (3.5-5.1) 11/19/24 14:40 Chloride 106 mmol/L (98-107) 11/19/24 14:40 Carbon Dioxide 21 mmol/L (22-29) L 11/19/24 14:40 Anion Gap 16.9 (5-19) 11/19/24 14:40 BUN 11 mg/dL (8-23) 11/19/24 14:40 Creatinine 0.7 mg/dL (0.5-0.9) 11/19/24 14:40 GFR Calculation 83.5 mL/min (90-130) L 11/19/24 14:40 Glucose 195 mg/dL (65-115) H 11/19/24 14:40 Calculated Osmolality 295 mOsm/kg (285-295) 11/19/24 14:40 Calcium 9.1 mg/dL (8.5-10.5) 11/19/24 14:40 Total Bilirubin 0.4 mg/dL (0.15-1.2) 11/19/24 14:40 AST 16 U/L (0-32) 11/19/24 14:40 ALT 14 U/L (0-33) 11/19/24 14:40 Alkaline Phosphatase 80 U/L (35-105) 11/19/24 14:40 Total Protein 6.8 g/dL (6.6-8.7) 11/19/24 14:40 Albumin 4.2 g/dL (3.5-5.2) 11/19/24 14:40 Globulin 2.6 g/dL (1.3-4.6) 11/19/24 14:40 No radiology studies performed this visit Discharge Plan Discharge Patient Disposition: Home Clinical Impression: Syncope Condition: Stable Prescriptions: No Action prednisolone acetate 1 % drops,suspension 1 drop ophthalmic (eye) DAILY Rx Instructions: to left eye pantoprazole 40 mg tablet,delayed release (DR/EC) 40 mg PO DAILY Ozempic 0.25 mg or 0.5 mg(2 mg/1.5 mL) pen injector 0.25 mg SUBCUT UNK Patient Comments: takes on Rx Instructions: 0.25 mg subcutaneously venlafaxine 37.5 mg capsule,extended release 24hr 37.5 mg PO DAILY rizatriptan 10 mg tablet See Rx Instructions PO .COMPLEX Rx Instructions: take 1 tab at onset of headache; if no relief may repeat 1 tab after at least 2 hrs; max = 3 tabs/24 hr PO meloxicam 7.5 mg tablet 7.5 mg PO DAILY Xarelto 20 mg tablet 20 mg PO DAILY acetaminophen [Tylenol] 325 mg Tablet 325 - 650 mg PO QID PRN (Reason: Pain) Discharge Orders: Discharge ED (Routine); Ordered 11/19/24 Ordered By: Tegan Vann Referrals: Marlen Judd MD [Primary Care Provider, Internal Medicine] Discharge Diet: Advance as tolerated Discharge Activity: Resume usual activity Patient Instructions: Syncope (ED) Print Language: Cypriot Coding Level of Care Code 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
[2024-11-19 15:29] VITALS: PULSE 79; O2SAT 99
== END 2024-11-19 15:30 | disposition home or self-care (01) ==
PROVIDERS: Emergency Provider Emergency Medicine; PCP Internal Medicine
DX: R55 Syncope and collapse (principal); E11.9 Type 2 diabetes mellitus without complications
CPT/HCPCS: 80053; 85025; 93005; 99284

== ENCOUNTER → 2024-11-23 15:08 | Outpatient (BNVA) | payer MEDICARE, SELFPAY | PROVIDERS: PCP Internal Medicine; Visit Provider Podiatrist Foot & Ankle Surgery | DX: E11.40 Type 2 diabetes mellitus with diabetic neuropathy, unspecified (principal); L98.8 Other specified disorders of the skin and subcutaneous tissue | CPT/HCPCS: 99203 ==

== ENCOUNTER 2025-01-03 07:50 | Outpatient (RCR) | payer MEDICARE, SELFPAY | END 2025-01-28 23:59 | disposition home or self-care (01) | LOC: SPT 07:50 | PROVIDERS: Visit Provider Nurse Practitioner Family | DX: M50.30 Other cervical disc degeneration, unspecified cervical region (principal); M25.511 Pain in right shoulder | CPT/HCPCS: 97110; 97161 ==

== ENCOUNTER 2025-01-29 05:00 | Outpatient (RCR) | payer MEDICARE, SELFPAY | END 2025-02-21 10:02 | disposition home or self-care (01) | LOC: SPT 05:00 | PROVIDERS: Visit Provider Nurse Practitioner Family | DX: M25.511 Pain in right shoulder (principal); M50.30 Other cervical disc degeneration, unspecified cervical region | CPT/HCPCS: 97110 ==

== ENCOUNTER → 2025-02-21 15:41 | Outpatient (BNVA) | payer MEDICARE, SELFPAY | PROVIDERS: PCP Internal Medicine; Visit Provider Specialist | DX: M25.411 Effusion, right shoulder (principal); M19.011 Primary osteoarthritis, right shoulder; R29.898 Other symptoms and signs involving the musculoskeletal system; M67.411 Ganglion, right shoulder | CPT/HCPCS: 20605; 20610; 20612; 73030; 99214 ==

== ENCOUNTER → 2025-04-16 10:56 | Outpatient (BNVA) | payer MEDICARE, SELFPAY | PROVIDERS: PCP Internal Medicine; Visit Provider Specialist | DX: Z47.89 Encounter for other orthopedic aftercare (principal); Z96.651 Presence of right artificial knee joint | CPT/HCPCS: 73560; 73565; 99213 ==

== ENCOUNTER 2025-04-24 10:47 | Outpatient (CLI) | payer MEDICARE, SELFPAY ==
[2025-04-25 12:54] LABS: Beef (27) IgE 0.22 kU/L; Beef Class 0/1; Cow's Milk Classification 0; Lamb (F88) IgE 0.10 kU/L; Lamb Class 0/1; Ovalbumin Class 0/1; Ovomucoid Class 1; Pork (F26) IgE <0.10 kU/L
== END 2025-04-24 10:48 | disposition home or self-care (01) ==
LOC: LAB 10:49
PROVIDERS: PCP Internal Medicine
DX: L50.0 Allergic urticaria (principal)
CPT/HCPCS: 36415; 86003; 86008

== ENCOUNTER 2025-05-03 15:27 | Outpatient (CLI) | payer MEDICARE, SELFPAY ==
--- NOTE | 2025-05-03 15:36 | USCV_ITS ---
Lillie Smith Age: 69 Gender: F : 1955 Exam Date: 05/03/2025 15:39 Ordering Phys: Jewels French Technologist: ZORAIDA Exam Location: [facility] [place] Indication: LEFT LEG PAIN HISTORY: Lower extremity pain. PROCEDURES: Venous duplex imaging was performed in only the left lower extremity. The following venous structures were evaluated: common femoral vein, profunda vein, proximal portion of the greater saphenous vein, superficial femoral vein, and the popliteal vein. In addition, the posterior tibial and peroneal trunk were evaluated. FINDINGS: There appears to be non occlusive chronic DVT in the LEFT MID FV to the LEFT PROX FV before the CFV CONFLUENCE. All vessels are compresible and show phasic dopler flow PT is on blood thinner CONCLUSIONS Chronic non occlusive DVT, LEFT femoral vein mid and proximal. Remainder LLE patent Marvin Mak MD (Electronically Signed) Final Date: 03 May 2025 17:28 S
== END 2025-05-03 15:28 | disposition home or self-care (01) ==
LOC: RAD 15:27
PROVIDERS: PCP Internal Medicine; Visit Provider Nurse Practitioner Family
DX: M79.661 Pain in right lower leg (principal); R60.0 Localized edema; I82.512 Chronic embolism and thrombosis of left femoral vein; Z79.01 Long term (current) use of anticoagulants
CPT/HCPCS: 93971

== ENCOUNTER 2025-05-14 12:22 | Outpatient (CLI) | payer MEDICARE, SELFPAY ==
--- NOTE | 2025-05-14 12:29 | MM_ITS ---
WS: [id number] BILATERAL 3D TOMOSYNTHESIS DIGITAL SCREENING MAMMOGRAPHY WITH CAD CLINICAL INFORMATION: ANNUAL SCREENING HISTORY: Screening mammogram. No current complaints. COMPARISON: 2023 TECHNIQUE: Bilateral CC and MLO views. FINDINGS: The breasts are composed of heterogeneous fibroglandular density tissue, which can limit the detection of small underlying mass lesions. No suspicious mass, asymmetry, calcifications, or architectural distortion. No evidence of malignancy. Dense nodular subareolar tissue bilaterally similar to the prior studies MM/MM [facility] tomosynthesis [id number] IMPRESSION: DENSITY: The breasts are heterogeneously dense, which may obscure small masses. BI-RADS: 2 - Benign FOLLOW UP: 1 Year Follow-up Recommend return to annual screening mammography.
== END 2025-05-14 12:23 | disposition home or self-care (01) ==
LOC: RAD 12:23
PROVIDERS: PCP Internal Medicine; Visit Provider Internal Medicine
DX: Z12.31 Encounter for screening mammogram for malignant neoplasm of breast (principal); R92.333 Mammographic heterogeneous density, bilateral breasts; R92.323 Mammographic fibroglandular density, bilateral breasts; R92.8 Other abnormal and inconclusive findings on diagnostic imaging of breast
CPT/HCPCS: 77063; 77067

== ENCOUNTER 2025-05-30 15:14 | Oncology outpatient (recurring) (ONCR) | payer MEDICARE, SELFPAY ==
[2025-05-30 16:08] LABS: Hematocrit 40.9 % (36-47); Hemoglobin 13.70 g/dL (11.27-16.99); Mean Corpuscular HGB Conc 33.5 g/dL (30-55); Mean Corpuscular Hemoglobin 30.3 pg (27-33); Mean Corpuscular Volume 90.5 fl (85-98); Nucleated Red Blood Cells % 0 %; Platelet Count 233 10^3/cmm (157-399); Red Blood Count 4.52 10^6/uL (3.85-5.65); White Blood Count 6.96 10^3/uL (3.29-11.43)
[2025-05-30 16:28] LABS: Alanine Aminotransferase 17 U/L (0-33); Albumin Level 4.3 g/dL (3.5-5.2); Alkaline Phosphatase 80 U/L (35-105); Aspartate Amino Transferase 19 U/L (0-32); Blood Urea Nitrogen 13 mg/dL (8-23); Calcium 9.2 mg/dL (8.5-10.5); Carbon Dioxide 23 mmol/L (22-29); Chloride 103 mmol/L (98-107); Globulin 2.6 g/dL (1.3-4.6); Glucose 91 mg/dL (65-115); Osmolality Calculated 288 mOsm/kg (285-295); Sodium 139 mmol/L (136-145); Total Protein 6.9 g/dL (6.6-8.7)
[2025-05-30 16:38] LABS: Anion Gap 17.3 (5-19); Potassium 4.3 mmol/L (3.5-5.1)
== END 2025-05-30 23:59 | disposition home or self-care (01) ==
PROVIDERS: PCP Internal Medicine; Visit Provider Internal Medicine
DX: I82.512 Chronic embolism and thrombosis of left femoral vein (principal); I82.401 Acute embolism and thrombosis of unspecified deep veins of right lower extremity; Z79.01 Long term (current) use of anticoagulants; E11.9 Type 2 diabetes mellitus without complications; K21.9 Gastro-esophageal reflux disease without esophagitis; D68.51 Activated protein C resistance
CPT/HCPCS: 80053; 83615; 85025; 85378; 99204